=== PATIENT | female | born 1960 | race Caucasian/White ===

== ENCOUNTER 2022-03-03 14:16 | Outpatient (CLI) | payer MEDICARE, MEDICAID, SELFPAY | END 2022-03-03 14:17 | disposition home or self-care (01) | PROVIDERS: PCP Physician Assistant; Visit Provider Physician Assistant | DX: H93.233 Hyperacusis, bilateral (principal) | CPT/HCPCS: 92557; 92567 ==

== ENCOUNTER 2022-04-13 10:02 | Outpatient (RCR) | payer MEDICARE, MEDICAID, SELFPAY | END 2022-07-12 23:59 | disposition home or self-care (01) | LOC: ANHAUDASC 10:02 | PROVIDERS: PCP Physician Assistant; Visit Provider Physician Assistant | DX: Z46.1 Encounter for fitting and adjustment of hearing aid (principal) | CPT/HCPCS: V5264 ==

== ENCOUNTER 2022-10-23 13:00 | Outpatient (RCR) | payer MEDICARE, MEDICAID, SELFPAY | END 2022-12-03 23:59 | disposition home or self-care (01) | LOC: ANHAUDASC 13:00 | PROVIDERS: PCP Physician Assistant; Visit Provider Physician Assistant | DX: Z46.1 Encounter for fitting and adjustment of hearing aid (principal) | CPT/HCPCS: 99199; V5264 ==

== ENCOUNTER 2022-12-26 18:36 | Inpatient (IN) | payer MEDICARE, MEDICAID, SELFPAY ==
[2022-12-26] VITALS (9 sets, daily range): BP systolic 142–151; BP diastolic 71–109; PULSE 97–119; RESP 16–23; TEMP 37.3–37.7; O2SAT 95–99
--- NOTE | ~2022-12-26 | CT_ITS ---
EXAMINATION: CT abdomen pelvis w con INDICATION: Generalized abdominal pain TECHNIQUE: Computed tomographic images of the abdomen and pelvis were obtained after the administrati on of 100 cc of Omnipaque 350 intravenous contrast. The dose-length product (DLP) was 1400.72 mGy-cm. Automated exposure control and iterative reconstruction technique were employed. COMPARISON: None available FINDINGS: Minimal dependent atelectasis is present in the lung bases. The heart size is normal. Punct ate calcifications in an otherwise normal spleen likely represent healed granulomatous disease. The l iver, pancreas, gallbladder, and adrenal glands are normal. There is moderate atrophy of the right ki dney compared to the left. Cysts of the kidneys measure up to 10 mm on the left. There is a 3.7 cm fu siform infrarenal abdominal aortic aneurysm. An IVC filter is noted. No pathologically enlarged abdom inal or pelvic lymph nodes are identified. There is no free intraperitoneal gas. A large volume of co lonic stool is present. There is mild wall thickening of the descending and sigmoid colon with mild a djacent edematous stranding of the pericolic fat. There is mild lumbar spondylosis. IMPRESSION: 1. Mild wall thickening of the descending and sigmoid colon with minimal adjacent fat stranding, sugg estive of colitis. 2. Fusiform infrarenal abdominal aortic aneurysm measuring up to 3.7 cm. Reviewed, dictated and finalized at location F. IMPRESSION: 1. Mild wall thickening of the descending and sigmoid colon with minimal adjace nt fat stranding, suggestive of colitis. 2. Fusiform infrarenal abdominal aortic aneurysm measuring up to 3.7 cm.
--- NOTE | ~2022-12-26 | CT_ITS ---
EXAMINATION: CT abdomen pelvis wo con DATE: 01/01/2023 10:46 INDICATION: Dilated bowel. TECHNIQUE: Computed tomography (CT) of the abdomen and pelvis was performed without intravenous contr ast. Automated exposure control and iterative reconstruction technique were employed. The dose-length product was 1339.19 mGy-cm. COMPARISON: CT abdomen and pelvis 12/26/2022 FINDINGS: The visualized portions of the lung bases demonstrate mild atelectasis. A calcified right l shawn nodule is consistent with old granulomatous disease. No pleural effusion. The heart size is ramila l. There are coronary artery calcifications. There is a small pericardial effusion. There is diffuse hepatic steatosis. Calcifications in the spleen are consistent with old granulomatous disease. The ga llbladder, pancreas, adrenal glands, and left kidney are normal. There is mild atrophy of right kidne y. There is a filter in the inferior vena cava. There is wall thickening of the descending and sigmoi d colon with surrounding fat stranding, consistent with colitis. There is a large volume of stool in the colon. The appendix is normal. There is a 3.6 cm fusiform aneurysm of infrarenal aorta. There is trace ascites. There are no pathologically enlarged lymph nodes. There is no free intraperitoneal flu id. There is mild thoracolumbar spondylosis. Thoracolumbar levoscoliosis is noted. IMPRESSION: 1. Colitis involving the descending and sigmoid colon. 2. Large volume of stool in the colon. 3. 3.6 cm fusiform aneurysm of infrarenal aorta. 4. New small pericardial effusion. Reviewed, dictated and finalized at location A.
--- NOTE | ~2022-12-26 | XR_ITS ---
EXAM: XR abdomen obstructive series DATE: 12/31/2022 15:42 HISTORY: GENERALIZED Abd pain, no BM x 4 days . COMPARISON: CT abdomen and pelvis 12/26/2022. FINDINGS: IVC filter. Clear lung bases. Scattered loops of dilated large bowel, measuring up to 10.6 cm. Large volume of colonic feces. No organomegaly. No abnormal abdominal calcification. Degenerativ e changes in the spine and bilateral hips. IMPRESSION: Multiple loops of mildly dilated large bowel, may reflect, ileus or obstruction. Large vo lume of colonic fecal material. Reviewed, dictated and finalized at location K. IMPRESSION: Multiple loops of mildly dilated large bowel, may reflect, ileus or obstruction. Large volume of colonic fecal material.
[2022-12-26 19:00] LABS: Basophils Absolute Auto 0.1 K/mm3 (0.0-0.1); Basophils Percent Auto 0.3 % (0.2-1.2); Hematocrit 43.5 % (37.0-47.0); Hemoglobin 15.6 g/dL (12.0-15.0); Immature Granulocyte Absolute 0.12 K/mm3 (0.00-0.031); Immature Granulocyte Percent A 0.5 % (0-0.5); Lymphocytes Absolute Auto 1.44 K/mm3 (0.9-3.2); Lymphocytes Percent Auto 6.2 % (18.3-44.2); Mean Corpuscular HGB Conc 35.9 g/dl (32-36); Mean Corpuscular Hemoglobin 28.7 pg (26-34); Mean Corpuscular Volume 80.1 fl (80-100); Mean Platelet Volume 8.6 fl (7.4-10.4); Monocytes Absolute Auto 1.5 K/mm3 (0.1-0.6); Monocytes Percent Auto 6.5 % (2.6-8.5); Neutrophils Absolute Auto 20.1 K/mm3 (1.3-6.7); Neutrophils Percent Auto 86.5 % (45.5-73.1); Platelet Count Result 529 k/mm3 (150-375); Red Blood Count 5.43 M/mm3 (4.2-5.4); Red Cell Distribution Width 13.2 % (11.5-14.5); White Blood Count 23.2 K/mm3 (4.5-10.0)
[2022-12-26 19:29] LABS: Alanine Aminotransferase 24 U/L (6-35); Albumin Level 4.7 g/dL (3.5-5.1); Alkaline Phosphatase 126 U/L (38-126); Anion Gap 14 mmol/L (8-16); Aspartate Amino Transferase 30 U/L (14-36); Blood Urea Nitrogen 30 mg/dL (7-17); Calcium 9.7 mg/dL (8.4-10.2); Carbon Dioxide 27 mmol/L (22-30); Chloride 96 mmol/L (98-107); Estimated CRCL calculation 45 ml/min; Estimated Glomerular Filt Rate 35; Glucose 158 mg/dL (65-110); Lipase 46 U/L (23-300); Potassium 2.7 mmol/L (3.4-5.0); Sodium 137 mmol/L (137-145)
[2022-12-26] MEDS: MORPHINE SULFATE (*CRX) 4 MG/ML INJ IV PUSH (22:21)
[2022-12-26] MEDS: ONDANSETRON INJ 4 MG/2 ML VIAL IV PUSH (22:21)
[2022-12-26] MEDS: KCL 20 MEQ/SW 100 ML 100 ML 50 MEQ IVPB (22:22)
[2022-12-26] MEDS: SODIUM CHLORIDE 0.9% IV 1,000 ML 999 ML IV CONT (22:22)
[2022-12-26 22:33] LABS: Lactic Acid Reflex 1.6 mmol/L (0.7-2.0); Magnesium 3.2 mg/dL (1.6-2.3)
[2022-12-27] VITALS (17 sets, daily range): BP systolic 124–136; BP diastolic 65–80; PULSE 78–102; RESP 15–25; TEMP 36.5–37.5; O2SAT 94–99; BMI 31.1
--- NOTE | 2022-12-27 00:10 | ED.GENADULT ---
HPI - General Adult General Chief complaint: Abdominal Pain Stated complaint: abd pain, vomiting Time Seen by Provider: 12/26/22 21:36 History of Present Illness HPI narrative: Patient 62-year-old female who presents emergency department with chief complaint of abdominal pain. The patient reports started having pain in the left lower quadrant reports that nausea vomiting reports that she has not had a bowel movement in the last 24 hours. Patient denies fever reports no prior history of bowel perforation denies history of appendectomy or cholecystectomy. Related Data Allergies Allergy/AdvReac Type Severity Reaction Status Date / Time sumatriptan Allergy Anaphylaxis Verified 12/26/22 21:45 ergotamine AdvReac Agitated Verified 12/26/22 21:45 NSAIDS (Non-Steroidal AdvReac Abdominal Verified 12/26/22 21:45 Anti-Inflamma Pain prednisone AdvReac Agitated Verified 12/26/22 21:45 rosuvastatin [From Crestor] AdvReac Diarrhea Verified 12/26/22 21:45 [id number]-[id number] Reductase AdvReac Diarrhea Verified 12/26/22 21:45 Inhibitor tree nut AdvReac Headache Verified 12/26/22 21:45 Review of Systems Review of Systems: A 10 system review of systems was completed on the patient and is negative except for what is stated in the HPI. Nursing and ancillary documentation was reviewed. Exam Narrative: GENERAL: Well-appearing, well-nourished, and in no acute distress. HEAD: Normocephalic, atraumatic. EYES: PERRLA and EOMI. ENT: Nares clear, no rhinorrhea or epistaxis. Mucous membranes moist. NECK: Supple. CHEST: Clear to auscultation. No respiratory distress. HEART: Regular rate and rhythm. No murmur heard. Normal peripheral pulses. ABDOMEN: Soft, tenderness to palpation in the left lower quadrant, nondistended, normal active bowel sounds. EXTREMITIES: Normal range of motion. No edema. SKIN: Warm, dry, no rash. NEURO: No focal deficits. Alert and oriented x3. PSYCH: Normal mood and affect. Course Vital Signs Vital signs: Vital Signs Temperature 37.3 C 12/26/22 18:42 Pulse Rate 119 H 12/26/22 18:42 Respiratory Rate 18 12/26/22 18:42 Blood Pressure 149/97 H 12/26/22 18:42 Pulse Oximetry 99 12/26/22 18:42 Oxygen Delivery Room Air 12/26/22 18:42 Temperature 37.7 C H 12/26/22 23:02 Pulse Rate 101 H 12/26/22 23:02 Respiratory Rate 18 12/26/22 23:02 Blood Pressure 151/109 H 12/26/22 21:36 Pulse Oximetry 95 12/26/22 23:15 Oxygen Delivery Room Air 12/26/22 18:42 Medical Decision Making MDM Narrative Medical decision making narrative: Differential diagnosis includes bowel perforation, bowel obstruction, diverticulitis colitis, intra-abdominal infection, appendicitis, cholecystitis Laboratory studies were obtained show white count of 23,000 labs also show that the patient's potassium was low at 2.7. Patient's magnesium was 3.2 Patient received 20 mill equivalents of potassium IV in the emergency department also received IV fluids and received Zosyn in the ER blood cultures were obtained. CT scan showed evidence of acute colitis Patient was discussed with the hospitalist patient admitted to hospital service Vital Signs Vital Signs: Vital Signs Temperature 37.3 C 12/26/22 18:42 Pulse Rate 119 H 12/26/22 18:42 Respiratory Rate 18 12/26/22 18:42 Blood Pressure 149/97 H 12/26/22 18:42 Pulse Oximetry 99 12/26/22 18:42 Oxygen Delivery Room Air 12/26/22 18:42 Temperature 37.7 C H 12/26/22 23:02 Pulse Rate 101 H 12/26/22 23:02 Respiratory Rate 18 12/26/22 23:02 Blood Pressure 151/109 H 12/26/22 21:36 Pulse Oximetry 95 12/26/22 23:15 Oxygen Delivery Room Air 12/26/22 18:42 Lab Data 12/26/22 18:51 12/26/22 18:51 Labs: Lab Results 12/26/22 12/26/22 12/26/22 Range/Units 18:51 18:51 22:01 WBC 23.2 H (4.5-10.0) K/mm3 RBC 5.43 H (4.2-5.4) M/mm3 Hgb 15.6 H (12.0-15.0) g/dL Hct 43.5 (37.0-47.0)
[2022-12-27 00:36] LABS: Appearance Urine Cloudy (Clear); Bacteria Urine 4+ /hpf; Bilirubin Urine Negative (Negative); Blood Urine Negative (Negative); Color Urine Yellow (Yellow); Glucose Urine UA Negative (Negative); Ketones Urine Negative (Negative); Leukocyte Esterase Ur Trace LEU/UL (Negative); Nitrate Urine Positive (Negative); Protein Urine Trace mg/dL (Negative); RBC Urine 0-2 /hpf (0-2); Specific Grav Ur 1.033 (1.001-1.035); Squamous Epithelial Cell Urine Many /hpf (Few); Urobilinogen Urine 0.2 mg/dL (<2.0)
[2022-12-27 00:49] LABS: Add Urine Microscopic? YES
[2022-12-27] MEDS: POTASSIUM CHLORIDE INJ 40 MEQ in SODIUM CHLORIDE 0.9% IV 500 ML 130 MEQ IVPB ×2 (01:24→10:00)
[2022-12-27] MEDS: PIPERACILLN/TAZ 3.375GM/NS50ML 3.375 GM/50 ML BAG IVPB ×4 (01:25→17:22)
[2022-12-27] MEDS: ONDANSETRON INJ 4 MG/2 ML VIAL IV PUSH (03:20)
[2022-12-27] MEDS: MORPHINE SULFATE (*CRX) 4 MG/ML INJ IV PUSH ×5 (03:20→23:59)
--- NOTE | 2022-12-27 04:31 | ADMGEN ---
This patient, Davin Cho, was admitted to Medical Room 248-01. Patient/family oriented to hospital policies and general routines including ID bracelet, bed and alarms, visiting hours, pain management, procedures, bathroom and other care routines, personal items, smoking policy, room service/diet, and visiting hours. Information on how to activate the Rapid Response Team has been discussed. Patient/Family are encouraged to report perceived risks to care and to ask questions if they do not understand what they are told or what they should do.
[2022-12-27] MEDS: SODIUM CHLORIDE 0.9% IV 1,000 ML 125 ML IV CONT ×2 (06:05→17:23)
--- NOTE | 2022-12-27 06:14 | PM.IMHP ---
H&P: HPI History of Present Illness Date/Time: 12/27/22 06:14 Chief Complaint: abdominal pain and vomiting Narrative: Patient is a 62 female with pmhx of htn, cva with left sided residual, hypelripidemia, dvt s/p ivc filter placement, depression and fibromyalgia, chronic fatigue syndrome coming in for abdominal pain and vomiting for 4 days. patient is usually bed bound but is able to ambulate by holding on the hand or a walker. she has home health which comes to her house and helps with her food, dressing and bathing. she said that since 4 days ago she has had problems with eating, with feeling full early. her abdomen started to hurt with crampy colicky pain. pain worsened yesterday with patient being unable to have any bowel movement. she [facility] home health nurse and she was given dulcolax suppositories which only made her vomit a lot of foul smelling material. patient denies any abdominal surgeries int he past. 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 she has had 2 cva's with left sided residual as well as some vision problems. she denies any suicidla or homicidal ideation. she used to go to the pain clinic for back injections but she says those have not helped much. Review of Systems Review of Systems: no fever or weight loss no vision changes, no eye discharge no throat pain, no hoarseness, no lymphadenopathy no chest pain, no palpitations no coughing, no wheezing positive abdominal pain, nausea, and vomiting no bowel movement for over 1 day no dysuria, no vaginal discharge no leg swelling, no edema no suicidal or homicidal ideation [facility] Social History Social History Smoking packs per day: 0.5 Smoking cigarettes per day: 10.0 Smoking status: Current every day smoker Tobacco type: cigarettes Alcohol intake: never Substance use: current Substance use type: marijuana Last use: 12/20/2022 Lack of Transportation: No Lack of Food: Never True Current Housing: I Have Housing Concerned About Future Housing: No Difficulty Paying Gas/Electric Bills: YES Difficulty Paying for Meds: No Currently Unemployed: No Education: High School Diploma/GED Difficulty w/ Childcare or Family Care: No Spiritual care concerns: No Meds Home Medications and Allergies Home Medications Medication Instructions Recorded Confirmed Type alprazolam 2 mg tablet 2 mg PO TID 12/27/22 12/27/22 History amlodipine 10 mg tablet 10 mg PO DAILY 12/27/22 12/27/22 History biotin 10,000 mcg chewable tablet 10,000 mcg PO DAILY 12/27/22 12/27/22 History (Hair, Skin and Nails (biotin)) cyclobenzaprine 10 mg tablet 10 mg PO TID 12/27/22 12/27/22 History folic acid 1 mg tablet 1 mg PO DAILY 12/27/22 12/27/22 History guanfacine 1 mg tablet 1 mg PO HS 12/27/22 12/27/22 History hydrochlorothiazide 25 mg tablet 25 mg PO DAILY 12/27/22 12/27/22 History levothyroxine 100 mcg tablet 100 mcg PO DAILY 12/27/22 12/27/22 History losartan 50 mg tablet 50 mg PO DAILY 12/27/22 12/27/22 History ondansetron 4 mg disintegrating 4 mg PO BID PRN Nausea 12/27/22 12/27/22 History tablet prochlorperazine maleate 10 mg 10 mg PO TID 12/27/22 12/27/22 History tablet zolpidem 5 mg tablet 5 mg PO HS 12/27/22 12/27/22 History Allergies Allergy/AdvReac Type Severity Reaction Status Date / Time sumatriptan Allergy Anaphylaxis Verified 12/26/22 21:45 ergotamine AdvReac Agitated Verified 12/26/22 21:45 NSAIDS (Non-Steroidal AdvReac Abdominal Verified 12/26/22 21:45 Anti-Inflamma Pain prednisone AdvReac Agitated Verified 12/26/22 21:45 rosuvastatin [From Crestor] AdvReac Diarrhea Verified 12/26/22 21:45 Nuamjai-UBO-BgR Reductase AdvReac Diarrhea Verified 12/26/22 21:45 Inhibitor tree nut AdvReac Headache Verified 12/26/22 21:45 Vital Signs Vital Signs - 24 hr 12/26/22 18:42 12/26/22 21:17 12/26/22 21:36 Temperature 99.2 F Pulse Rat
[2022-12-27 08:17] LABS: Basophils Absolute Auto 0.1 K/mm3 (0.0-0.1); Basophils Percent Auto 0.5 % (0.2-1.2); Eosinophils Percent Auto 0.1 % (0-4.4); Hematocrit 42.1 % (37.0-47.0); Hemoglobin 14.4 g/dL (12.0-15.0); Immature Granulocyte Absolute 0.08 K/mm3 (0.00-0.031); Immature Granulocyte Percent A 0.4 % (0-0.5); Lymphocytes Absolute Auto 2.76 K/mm3 (0.9-3.2); Lymphocytes Percent Auto 12.4 % (18.3-44.2); Mean Corpuscular HGB Conc 34.2 g/dl (32-36); Mean Corpuscular Hemoglobin 28.9 pg (26-34); Mean Corpuscular Volume 84.5 fl (80-100); Mean Platelet Volume 8.8 fl (7.4-10.4); Monocytes Absolute Auto 1.5 K/mm3 (0.1-0.6); Monocytes Percent Auto 6.8 % (2.6-8.5); Neutrophils Absolute Auto 17.8 K/mm3 (1.3-6.7); Neutrophils Percent Auto 79.8 % (45.5-73.1); Platelet Count Result 449 k/mm3 (150-375); Red Blood Count 4.98 M/mm3 (4.2-5.4); Red Cell Distribution Width 13.6 % (11.5-14.5); White Blood Count 22.3 K/mm3 (4.5-10.0)
[2022-12-27 08:28] LABS: Anion Gap 14 mmol/L (8-16); Blood Urea Nitrogen 27 mg/dL (7-17); Calcium 8.3 mg/dL (8.4-10.2); Carbon Dioxide 25 mmol/L (22-30); Chloride 99 mmol/L (98-107); Estimated CRCL calculation 53 ml/min; Estimated Glomerular Filt Rate 42; Glucose 125 mg/dL (65-110); Potassium 2.8 mmol/L (3.4-5.0); Sodium 138 mmol/L (137-145)
[2022-12-27] MEDS: ENOXAPARIN 40 MG/0.4 ML SYRINGE SUB-Q (08:43)
--- NOTE | 2022-12-27 16:23 | PCCCNOTE ---
On 12/27/22, the student, [Kathy Wilkins ], provided care and completed [facility] on [facility]. I have reviewed the student's documentation and agree with the findings.
--- NOTE | 2022-12-27 16:50 | PM.IMPN ---
Progress Note: A&P Assessment and Plan (1) Acute colitis: Code(s): K52.9 - Noninfective gastroenteritis and colitis, unspecified Status: Acute Assessment and Plan: Patient with abdominal pain, nausea and vomiting CT showed colitis but no evidence of perforation. Continue supportive care with iv fluids. Advance to clear liquids Continue levaquin and flagyl Supportive care to include antiemetics and analgesics Obtain stool cultures (2) Sepsis: Code(s): A41.9 - Sepsis, unspecified organism Status: Acute Assessment and Plan: Leukocytosis, tachycardia, source of infection colitis as above Continue IV abx and IV fluids Trend WBC Blood cultures pending Afebrile (3) Acute hypokalemia: Code(s): E87.6 - Hypokalemia Status: Acute Assessment and Plan: Likely due to vomiting and decreased PO intake Potassium 2.9 today Supplement and monitor (4) KALIE (acute kidney injury): Code(s): N17.9 - Acute kidney failure, unspecified Status: Acute Assessment and Plan: Improving. Cr elevated to 1.5 on admission, likely prerenal azotemia Continue with IV fluids Monitor BMP (5) Hypertension: Code(s): I10 - Essential (primary) hypertension Status: Acute Assessment and Plan: BP remaining stable Resume antihypertensives when tolerating PO intake Subjective Date/time seen: 12/27/22 16:50 Interval history: Date of service: 12/27/2022 Davin Cho is a 62-year-old female with history of hypertension, CVA with residual left sided weakness, hyperlipidemia, DVT s/p IVC filter, depression, fibromyalgia, and chronic fatigue syndrome who is seen in follow up for acute colitis. She endorses abdominal discomfort. Complains of feeling thirsty. Would like to start clear liquids. Denies nausea or vomiting. She feels weak. Review of Systems Review of Systems: All systems reviewed & are unremarkable except as noted in HPI and below Exam Narrative: General: well-nourished, well-appearing 62-year-old male, sitting up in bed, comfortable Neuro: awake, alert and oriented x4, speech clear, no focal neuro deficits noted HEENMT:normocephalic, atraumatic, EOMI, sclerae anicteric Respiratory:clear to auscultation bilaterally, nonlabored breathing Cardio: regular rate, regular rhythm with S1-S2 Abdomen: nondistended, normoactive bowel sounds, soft, nontender to palpation Extremities: no edema, erythema, or tenderness to palpation, DP pulses 2+ bilaterally Skin: no rashes or lesions, warm and dry Psych: appropriate mood and affect, judgment and insight intact Objective Data Vital Signs Vital Signs: Vital Signs - 24 hr 12/26/22 18:42 12/26/22 21:17 12/26/22 21:36 Temperature 99.2 F Pulse Rate 119 H 97 100 Respiratory Rate 18 16 16 Blood Pressure 149/97 H 144/79 H 151/109 H Pulse Oximetry 99 98 95 Oxygen Delivery Room Air 12/26/22 22:16 12/26/22 22:48 12/26/22 23:02 Temperature 99.9 F H Pulse Rate 100 101 H Respiratory Rate 23 H 18 Blood Pressure Pulse Oximetry 98 96 Oxygen Delivery 12/26/22 23:15 12/26/22 23:30 12/26/22 23:31 Temperature Pulse Rate 99 Respiratory Rate 20 Blood Pressure 142/71 H Pulse Oximetry 95 95 95 Oxygen Delivery 12/27/22 00:23 12/27/22 00:30 12/27/22 00:45 Temperature Pulse Rate 97 92 86 Respiratory Rate 23 H Blood Pressure Pulse Oximetry 94 95 95 Oxygen Delivery 12/27/22 01:00 12/27/22 01:38 12/27/22 02:01 Temperature 98 F Pulse Rate 78 99 93 Respiratory Rate 25 H 18 20 Blood Pressure 130/80 136/67 Pulse Oximetry 96 99 96 Oxygen Delivery 12/27/22 02:18 12/27/22 02:30 12/27/22 02:55 Temperature Pulse Rate 88 87 93 Respiratory Rate 20 20 15 Blood Pressure Pulse Oximetry 96 97 97 Oxygen Delivery 12/27/22 03:07 12/27/22 04:27 12/27/22 08:00 Temperature 99.5 F 97.7 F Pulse Rate 99 87 102
[2022-12-27] MEDS: POTASSIUM CHLORIDE 20 MEQ TABLET PO (17:22)
[2022-12-27] MEDS: CYCLOBENZAPRINE HCL 10 MG TABLET PO (17:22)
[2022-12-27] MEDS: ZOLPIDEM TARTRATE (*CRX) 5 MG TABLET PO (21:28)
[2022-12-27] MEDS: guanFACINE HCL 1 MG TABLET PO (21:28)
[2022-12-28] VITALS (10 sets, daily range): BP systolic 128–136; BP diastolic 66–67; PULSE 81–99; RESP 16–18; TEMP 36.7–36.9; O2SAT 93–97
[2022-12-28] MEDS: PIPERACILLN/TAZ 3.375GM/NS50ML 3.375 GM/50 ML BAG IVPB ×5 (00:06→23:56)
[2022-12-28] MEDS: MORPHINE SULFATE (*CRX) 4 MG/ML INJ IV PUSH ×3 (03:40→11:49)
[2022-12-28] MEDS: SODIUM CHLORIDE 0.9% IV 1,000 ML 125 ML IV CONT (03:45)
[2022-12-28 05:09] LABS: Basophils Absolute Auto 0.1 K/mm3 (0.0-0.1); Basophils Percent Auto 0.6 % (0.2-1.2); Eosinophils Absolute Auto 0.2 K/mm3 (0-0.3); Eosinophils Percent Auto 1.1 % (0-4.4); Hematocrit 34.5 % (37.0-47.0); Hemoglobin 11.7 g/dL (12.0-15.0); Immature Granulocyte Percent A 0.6 % (0-0.5); Lymphocytes Absolute Auto 2.34 K/mm3 (0.9-3.2); Lymphocytes Percent Auto 13.9 % (18.3-44.2); Mean Corpuscular HGB Conc 33.9 g/dl (32-36); Mean Corpuscular Hemoglobin 29.1 pg (26-34); Mean Corpuscular Volume 85.8 fl (80-100); Mean Platelet Volume 8.8 fl (7.4-10.4); Monocytes Absolute Auto 1.2 K/mm3 (0.1-0.6); Monocytes Percent Auto 6.9 % (2.6-8.5); Neutrophils Absolute Auto 12.9 K/mm3 (1.3-6.7); Neutrophils Percent Auto 76.9 % (45.5-73.1); Platelet Count Result 309 k/mm3 (150-375); Red Blood Count 4.02 M/mm3 (4.2-5.4); Red Cell Distribution Width 13.5 % (11.5-14.5); White Blood Count 16.8 K/mm3 (4.5-10.0)
[2022-12-28 05:31] LABS: Anion Gap 5 mmol/L (8-16); Blood Urea Nitrogen 21 mg/dL (7-17); Calcium 7.5 mg/dL (8.4-10.2); Carbon Dioxide 27 mmol/L (22-30); Chloride 103 mmol/L (98-107); Estimated CRCL calculation 62 ml/min; Estimated Glomerular Filt Rate 50; Glucose 133 mg/dL (65-110); Potassium 2.8 mmol/L (3.4-5.0); Sodium 135 mmol/L (137-145)
[2022-12-28] MEDS: LEVOTHYROXINE SODIUM 100 MCG TABLET PO (06:37)
[2022-12-28 08:27] LABS: Magnesium 2.6 mg/dL (1.6-2.3)
[2022-12-28] MEDS: LOSARTAN POTASSIUM 50 MG TABLET PO (08:46)
[2022-12-28] MEDS: ENOXAPARIN 40 MG/0.4 ML SYRINGE SUB-Q (08:46)
[2022-12-28] MEDS: FOLIC ACID 1 MG TABLET PO (08:47)
[2022-12-28] MEDS: CYCLOBENZAPRINE HCL 10 MG TABLET PO ×3 (08:47→16:54)
[2022-12-28] MEDS: POTASSIUM CHLORIDE 20 MEQ TABLET 40 MEQ PO ×2 (08:47→16:54)
[2022-12-28] MEDS: amLODIPine BESYLATE 5 MG TABLET 10 MG PO (08:47)
[2022-12-28] MEDS: POTASSIUM CHLORIDE 20 MEQ PACKET (FOR LIQUID) 40 MEQ PO ×2 (08:48→16:55)
--- NOTE | 2022-12-28 11:07 | PC.NURSE ---
On 12/28/22, the student, [Chiqui Laboy], provided care and completed [facility] documentation on this patient. I have reviewed the student's documentation and agree with the findings.
--- NOTE | 2022-12-28 15:01 | PC.NURSE ---
On 12/28/22, the student, [Margi Beard], provided care and completed [facility] on this patient. I have reviewed the student's documentation and agree with the findings.
--- NOTE | 2022-12-28 16:26 | PM.IMPN ---
Progress Note: A&P Assessment and Plan (1) Acute colitis: Code(s): K52.9 - Noninfective gastroenteritis and colitis, unspecified Status: Acute Assessment and Plan: Patient with abdominal pain, nausea and vomiting CT showed colitis but no evidence of perforation. Continue supportive care with iv fluids. Tolerating full liquids. Advance to low-fiber /bland diet as tolerated Supportive care to include antiemetics and analgesics stool cultures ordered, awaiting collection (2) Sepsis: Code(s): A41.9 - Sepsis, unspecified organism Status: Acute Assessment and Plan: patient met criteria for sepsis with leukocytosis and tachycardia. Source of infection colitis as above Continue IV abx and IV fluids Trend WBC, improving today Afebrile (3) Positive blood culture: Code(s): R78.81 - Bacteremia Status: Acute Assessment and Plan: blood cultures with growth of Gram-positive cocci in 1/2 bottles. Etiology for infection not entirely clear, possibly GI source versus urinary will await further identification continue vancomycin and Zosyn while awaiting results (4) Abnormal urinalysis: Code(s): R82.90 - Unspecified abnormal findings in urine Status: Acute Assessment and Plan: patient complains of dysuria and UA is slightly abnormal urine cultures pending patient is maintained on broad-spectrum vancomycin and Zosyn while awaiting blood culture results, continue and tailor appropriately based on culture results (5) Acute hypokalemia: Code(s): E87.6 - Hypokalemia Status: Acute Assessment and Plan: Likely due to vomiting and decreased PO intake Potassium 2.9 today Supplement and monitor begin scheduled potassium supplementation (6) KALIE (acute kidney injury): Code(s): N17.9 - Acute kidney failure, unspecified Status: Acute Assessment and Plan: Improving. Cr elevated to 1.5 on admission, likely prerenal azotemia Continue with gentle IV fluids Monitor BMP (7) Hypertension: Code(s): I10 - Essential (primary) hypertension Status: Acute Assessment and Plan: BP remaining stable continue amlodipine and losartan Subjective Date/time seen: 12/28/22 16:26 Interval history: Date of service: 12/28/2022 Davin Cho is a 62-year-old female with history of hypertension, CVA with residual left sided weakness, hyperlipidemia, DVT s/p IVC filter, depression, fibromyalgia, and chronic fatigue syndrome who is seen in follow up for acute colitis. Starting to feel somewhat improved. She is tolerating liquids. She does endorse 5/10 abdominal discomfort, states it is worse with activity. She has some mild abdominal cramping. States she has not had any bowel movements and is not passing flatus today. She also complains of some mild dysuria. Denies hematuria. Review of Systems Review of Systems: All systems reviewed & are unremarkable except as noted in HPI and below Exam Narrative: General: well-nourished, well-appearing 62-year-old female, sitting up in bed, comfortable Neuro: awake, alert and oriented x4, speech clear, no focal neuro deficits noted HEENMT:normocephalic, atraumatic, EOMI, sclerae anicteric Respiratory:clear to auscultation bilaterally, nonlabored breathing Cardio: regular rate, regular rhythm with S1-S2 Abdomen: nondistended, normoactive bowel sounds, soft, nontender to palpation Extremities: no edema, erythema, or tenderness to palpation, DP pulses 2+ bilaterally Skin: no rashes or lesions, warm and dry Psych: appropriate mood and affect, judgment and insight fair Objective Data Vital Signs Vital Signs: Vital Signs - 24 hr 12/27/22 21:37 12/27/22 21:10 12/27/22 20:00 Temperature 98.1 F Pulse Rate 92 98 Respiratory Rate 18 Blood Pressure 134/69 Pulse Oximetry 99 Oxygen Delivery Room Air 12/28/22 00
[2022-12-28] MEDS: HYDROcodone/acetaminophen (*CRX) 5-325 MG TABLET 1 TAB PO (16:54)
[2022-12-28] MEDS: MORPHINE SULFATE (*CRX) 4 MG/ML INJ 2 MG IV PUSH (20:41)
[2022-12-28] MEDS: SODIUM CHLORIDE 0.9% IV 1,000 ML 75 ML IV CONT (20:42)
[2022-12-28] MEDS: ZOLPIDEM TARTRATE (*CRX) 5 MG TABLET PO (20:43)
[2022-12-28] MEDS: guanFACINE HCL 1 MG TABLET PO (20:43)
[2022-12-29] VITALS (10 sets, daily range): BP systolic 116–156; BP diastolic 51–92; PULSE 67–118; RESP 14–20; TEMP 36.9–37.6; O2SAT 97–99
[2022-12-29] MEDS: HYDROcodone/acetaminophen (*CRX) 5-325 MG TABLET 1 TAB PO ×2 (01:51→17:43)
[2022-12-29 05:38] LABS: Hematocrit 32.7 % (37.0-47.0); Hemoglobin 11.2 g/dL (12.0-15.0); Mean Corpuscular HGB Conc 34.3 g/dl (32-36); Mean Corpuscular Hemoglobin 28.4 pg (26-34); Mean Corpuscular Volume 82.8 fl (80-100); Mean Platelet Volume 8.9 fl (7.4-10.4); Platelet Count Result 351 k/mm3 (150-375); Red Blood Count 3.95 M/mm3 (4.2-5.4); White Blood Count 15.5 K/mm3 (4.5-10.0)
[2022-12-29] MEDS: PIPERACILLN/TAZ 3.375GM/NS50ML 3.375 GM/50 ML BAG IVPB (05:40)
[2022-12-29] MEDS: MORPHINE SULFATE (*CRX) 4 MG/ML INJ 2 MG IV PUSH ×3 (05:41→20:25)
[2022-12-29] MEDS: LEVOTHYROXINE SODIUM 100 MCG TABLET PO (05:43)
[2022-12-29 06:04] LABS: Anion Gap 9 mmol/L (8-16); Blood Urea Nitrogen 12 mg/dL (7-17); Calcium 7.7 mg/dL (8.4-10.2); Carbon Dioxide 22 mmol/L (22-30); Chloride 102 mmol/L (98-107); Estimated CRCL calculation 67 ml/min; Estimated Glomerular Filt Rate 56; Glucose 99 mg/dL (65-110); Potassium 3.3 mmol/L (3.4-5.0); Sodium 133 mmol/L (137-145)
[2022-12-29] MEDS: POTASSIUM CHLORIDE 20 MEQ TABLET.ER PO ×2 (09:17→17:40)
[2022-12-29] MEDS: LOSARTAN POTASSIUM 50 MG TABLET PO (09:17)
[2022-12-29] MEDS: FOLIC ACID 1 MG TABLET PO (09:17)
[2022-12-29] MEDS: CYCLOBENZAPRINE HCL 10 MG TABLET PO ×3 (09:18→17:40)
[2022-12-29] MEDS: ENOXAPARIN 40 MG/0.4 ML SYRINGE SUB-Q (09:18)
[2022-12-29] MEDS: amLODIPine BESYLATE 5 MG TABLET 10 MG PO (09:18)
--- NOTE | 2022-12-29 11:04 | PC.NURSE ---
On 12/29/22, the student, [Margi Beard], provided care and completed [facility] documentation on this patient. I have reviewed the student's documentation and agree with the findings.
[2022-12-29] MEDS: SODIUM CHLORIDE 0.9% IV 1,000 ML 75 ML IV CONT (12:14)
[2022-12-29] MEDS: AMOXICILLIN/CLAVULANATE K 875-125 MG TAB 1 TABLET PO ×2 (13:21→20:23)
--- NOTE | 2022-12-29 13:27 | PCPTNOTE ---
Attempted PT evaluation. Pt stated I can't. I have to lay down for a few minutes. Pt reports having a panic attack. RN aware.
--- NOTE | 2022-12-29 13:43 | PC.NURSE ---
On 12/29/22, the student, [Anand Valdez], provided care and completed [facility] documentation on this patient. I have reviewed the student's documentation and agree with the findings.
[2022-12-29] MEDS: ALPRAZolam (*CRX) 0.5 MG TABLET 2 MG PO ×2 (14:20→21:41)
--- NOTE | 2022-12-29 14:48 | P.PNIM_ITS ---
Progress Note: A&P Assessment and Plan (1) Acute colitis: Code(s): K52.9 - Noninfective gastroenteritis and colitis, unspecified Status: Acute Assessment and Plan: Patient with abdominal pain, nausea and vomiting * CT showed colitis but no evidence of perforation. * Continue supportive care with iv fluids. * trouble tolerating low-fiber diet today. Continue full liquids and advance again to low-fiber as tolerated * Supportive care to include antiemetics and analgesics * stool cultures ordered, awaiting collection * transition to p.o. Augmentin (2) Sepsis: Code(s): A41.9 - Sepsis, unspecified organism Status: Acute Assessment and Plan: patient met criteria for sepsis with leukocytosis and tachycardia. Source of infection colitis as above * Continue antibiotics * will discontinue IV fluids as patient is tolerating oral intake * Trend WBC, improving today * Afebrile (3) Positive blood culture: Code(s): R78.81 - Bacteremia Status: Acute Assessment and Plan: blood cultures with growth of staphylococcus epidermidis in 1 of 2 bottles * felt to be skin contaminant, not felt to be consistent with true infection * no need for further treatment at this time * vancomycin and Zosyn discontinued (4) UTI (urinary tract infection): Code(s): N39.0 - Urinary tract infection, site not specified Status: Acute Assessment and Plan: patient complained of dysuria, UA abnormal * urine culture with growth of Klebsiella pneumoniae * continue p.o. Augmentin based on susceptibility reports (5) Acute hypokalemia: Code(s): E87.6 - Hypokalemia Status: Acute Assessment and Plan: Likely due to vomiting and decreased PO intake * Potassium improved to 3.3 today * continue scheduled potassium supplementation and monitor BMP (6) KALIE (acute kidney injury): Code(s): N17.9 - Acute kidney failure, unspecified Status: Acute Assessment and Plan: resolved. Cr elevated to 1.5 on admission, likely prerenal azotemia * creatinine has normalized fluid rehydration * Monitor BMP (7) Hypertension: Code(s): I10 - Essential (primary) hypertension Status: Acute Assessment and Plan: BP remaining stable * continue amlodipine and losartan Subjective Date/time seen: 12/29/22 14:48 Interval history: Date of service: 12/29/2022 Davin Cho is a 62-year-old female with history of hypertension, CVA with residual left sided weakness, hyperlipidemia, DVT s/p IVC filter, depression, fibromyalgia, and chronic fatigue syndrome who is seen in follow up for acute colitis. patient states that she is feeling rough today. She tried to have solids for breakfast and had difficulty keeping this down. She endorsed episode of emesis and has had nausea since. She complains of pain across her lower abdomen. She also endorses dysuria. She denies shortness of breath or congestion but does complain of allergies. Denies cough. She does feel a bit weak, dizzy, and unsteady. Review of Systems Review of Systems: All systems reviewed & are unremarkable except as noted in HPI and below Exam Narrative: General: well-nourished, well-appearing 62-year-old female, sitting up in bed, comfortable Neuro: awake, alert and oriented x4, speech clear, no focal neuro deficits noted HEENMT:normocephalic, atraumatic, EOMI, sclerae anicteric Respiratory:clear to a
--- NOTE | 2022-12-29 14:48 | PM.IMPN ---
Progress Note: A&P Assessment and Plan (1) Acute colitis: Code(s): K52.9 - Noninfective gastroenteritis and colitis, unspecified Status: Acute Assessment and Plan: Patient with abdominal pain, nausea and vomiting CT showed colitis but no evidence of perforation. Continue supportive care with iv fluids. trouble tolerating low-fiber diet today. Continue full liquids and advance again to low-fiber as tolerated Supportive care to include antiemetics and analgesics stool cultures ordered, awaiting collection transition to p.o. Augmentin (2) Sepsis: Code(s): A41.9 - Sepsis, unspecified organism Status: Acute Assessment and Plan: patient met criteria for sepsis with leukocytosis and tachycardia. Source of infection colitis as above Continue antibiotics will discontinue IV fluids as patient is tolerating oral intake Trend WBC, improving today Afebrile (3) Positive blood culture: Code(s): R78.81 - Bacteremia Status: Acute Assessment and Plan: blood cultures with growth of staphylococcus epidermidis in 1 of 2 bottles felt to be skin contaminant, not felt to be consistent with true infection no need for further treatment at this time vancomycin and Zosyn discontinued (4) UTI (urinary tract infection): Code(s): N39.0 - Urinary tract infection, site not specified Status: Acute Assessment and Plan: patient complained of dysuria, UA abnormal urine culture with growth of Klebsiella pneumoniae continue p.o. Augmentin based on susceptibility reports (5) Acute hypokalemia: Code(s): E87.6 - Hypokalemia Status: Acute Assessment and Plan: Likely due to vomiting and decreased PO intake Potassium improved to 3.3 today continue scheduled potassium supplementation and monitor BMP (6) KALIE (acute kidney injury): Code(s): N17.9 - Acute kidney failure, unspecified Status: Acute Assessment and Plan: resolved. Cr elevated to 1.5 on admission, likely prerenal azotemia creatinine has normalized fluid rehydration Monitor BMP (7) Hypertension: Code(s): I10 - Essential (primary) hypertension Status: Acute Assessment and Plan: BP remaining stable continue amlodipine and losartan Subjective Date/time seen: 12/29/22 14:48 Interval history: Date of service: 12/29/2022 Davin Cho is a 62-year-old female with history of hypertension, CVA with residual left sided weakness, hyperlipidemia, DVT s/p IVC filter, depression, fibromyalgia, and chronic fatigue syndrome who is seen in follow up for acute colitis. patient states that she is feeling rough today. She tried to have solids for breakfast and had difficulty keeping this down. She endorsed episode of emesis and has had nausea since. She complains of pain across her lower abdomen. She also endorses dysuria. She denies shortness of breath or congestion but does complain of allergies. Denies cough. She does feel a bit weak, dizzy, and unsteady. Review of Systems Review of Systems: All systems reviewed & are unremarkable except as noted in HPI and below Exam Narrative: General: well-nourished, well-appearing 62-year-old female, sitting up in bed, comfortable Neuro: awake, alert and oriented x4, speech clear, no focal neuro deficits noted HEENMT:normocephalic, atraumatic, EOMI, sclerae anicteric Respiratory:clear to auscultation bilaterally, nonlabored breathing Cardio: regular rate, regular rhythm with S1-S2 Abdomen: nondistended, normoactive bowel sounds, soft, slightly tender to palpation Extremities: no edema, erythema, or tenderness to palpation, DP pulses 2+ bilaterally Skin: no rashes or lesions, warm and dry Psych: appropriate mood and affect, judgment and insight fair Objective Data Vital Signs Vital Signs: Vital Signs - 24 hr 12/28/22 16:00 12/28/22 19:38 12/28/22 2
[2022-12-29] MEDS: ONDANSETRON INJ 4 MG/2 ML VIAL IV PUSH (17:43)
[2022-12-29] MEDS: guanFACINE HCL 1 MG TABLET PO (20:23)
[2022-12-29] MEDS: ZOLPIDEM TARTRATE (*CRX) 5 MG TABLET PO (20:23)
[2022-12-30] VITALS (12 sets, daily range): BP systolic 116–148; BP diastolic 52–78; PULSE 87–113; RESP 16–20; TEMP 36.4–37.1; O2SAT 96–97
[2022-12-30] MEDS: HYDROcodone/acetaminophen (*CRX) 5-325 MG TABLET 1 TAB PO ×3 (01:09→16:09)
[2022-12-30] MEDS: LEVOTHYROXINE SODIUM 100 MCG TABLET PO (05:30)
[2022-12-30] MEDS: ONDANSETRON INJ 4 MG/2 ML VIAL IV PUSH ×2 (05:45→09:20)
[2022-12-30] MEDS: MORPHINE SULFATE (*CRX) 4 MG/ML INJ 2 MG IV PUSH ×2 (05:45→20:26)
[2022-12-30 06:14] LABS: Hematocrit 37.3 % (37.0-47.0); Hemoglobin 12.5 g/dL (12.0-15.0); Mean Corpuscular HGB Conc 33.5 g/dl (32-36); Mean Corpuscular Hemoglobin 27.6 pg (26-34); Mean Corpuscular Volume 82.3 fl (80-100); Mean Platelet Volume 8.7 fl (7.4-10.4); Platelet Count Result 501 k/mm3 (150-375); Red Blood Count 4.53 M/mm3 (4.2-5.4); Red Cell Distribution Width 13.2 % (11.5-14.5); White Blood Count 15.9 K/mm3 (4.5-10.0)
[2022-12-30 06:20] LABS: Anion Gap 9 mmol/L (8-16); Blood Urea Nitrogen 8 mg/dL (7-17); Calcium 8.4 mg/dL (8.4-10.2); Carbon Dioxide 23 mmol/L (22-30); Chloride 105 mmol/L (98-107); Estimated CRCL calculation 83 ml/min; Estimated Glomerular Filt Rate > 60; Glucose 104 mg/dL (65-110); Magnesium 2.1 mg/dL (1.6-2.3); Potassium 3.5 mmol/L (3.4-5.0); Sodium 137 mmol/L (137-145)
[2022-12-30] MEDS: AMOXICILLIN/CLAVULANATE K 875-125 MG TAB 1 TABLET PO ×2 (09:18→20:26)
[2022-12-30] MEDS: POTASSIUM CHLORIDE 20 MEQ TABLET.ER PO ×2 (09:18→17:14)
[2022-12-30] MEDS: FOLIC ACID 1 MG TABLET PO (09:18)
[2022-12-30] MEDS: amLODIPine BESYLATE 5 MG TABLET 10 MG PO (09:19)
[2022-12-30] MEDS: ALPRAZolam (*CRX) 0.5 MG TABLET 2 MG PO ×3 (09:19→20:26)
[2022-12-30] MEDS: ENOXAPARIN 40 MG/0.4 ML SYRINGE SUB-Q (09:19)
[2022-12-30] MEDS: CYCLOBENZAPRINE HCL 10 MG TABLET PO ×3 (09:20→17:14)
[2022-12-30] MEDS: LOSARTAN POTASSIUM 50 MG TABLET PO (09:20)
[2022-12-30] MEDS: polyethylene glycoL 3350 17 GM POWD.PACK PO (12:31)
--- NOTE | 2022-12-30 13:29 | P.PNIM_ITS ---
Progress Note: A&P Assessment and Plan (1) Acute colitis: Code(s): K52.9 - Noninfective gastroenteritis and colitis, unspecified Status: Acute Assessment and Plan: Patient with abdominal pain, nausea and vomiting * CT showed colitis but no evidence of perforation. * Continue supportive care with iv fluids. * Patient still having difficulty tolerating solid diet. Continue to advance diet as tolerated * Consider GI consultation if no improvement and still unable to tolerate solids tomorrow * Supportive care to include antiemetics and analgesics * stool cultures ordered, awaiting specimen for collection * Continue p.o. Augmentin (2) Sepsis: Code(s): A41.9 - Sepsis, unspecified organism Status: Resolved Assessment and Plan: Resolved. patient met criteria for sepsis with leukocytosis and tachycardia. Source of infection colitis as above * Continue antibiotics * IV fluids discontinued as patient is tolerating oral intake * Trend WBC, overall improved * Afebrile (3) Positive blood culture: Code(s): R78.81 - Bacteremia Status: Acute Assessment and Plan: blood cultures with growth of staphylococcus epidermidis in 1 of 2 bottles * felt to be skin contaminant, not felt to be consistent with true infection * no need for further treatment at this time * vancomycin and Zosyn discontinued (4) UTI (urinary tract infection): Code(s): N39.0 - Urinary tract infection, site not specified Status: Acute Assessment and Plan: patient complained of dysuria, UA abnormal * urine culture with growth of Klebsiella pneumoniae * continue p.o. Augmentin based on susceptibility reports (5) Acute hypokalemia: Code(s): E87.6 - Hypokalemia Status: Acute Assessment and Plan: Likely due to vomiting and decreased PO intake * Potassium improved to 3.5 today * continue scheduled potassium supplementation and monitor BMP (6) KALIE (acute kidney injury): Code(s): N17.9 - Acute kidney failure, unspecified Status: Acute Assessment and Plan: resolved. Cr elevated to 1.5 on admission, likely prerenal azotemia * creatinine has normalized following IV fluid rehydration * Monitor BMP (7) Hypertension: Code(s): I10 - Essential (primary) hypertension Status: Acute Assessment and Plan: BP remaining stable * continue amlodipine and losartan Subjective Date/time seen: 12/30/22 13:29 Interval history: Date of service: 12/30/2022 Davin Cho is a 62-year-old female with history of hypertension, CVA with residual left sided weakness, hyperlipidemia, DVT s/p IVC filter, depression, fibromyalgia, and chronic fatigue syndrome who is seen in follow up for acute colitis. Patient complains of abdominal cramping today. States she was vomiting yesterday after attempting solid foods. She is tolerating liquids this morning but she still is struggling to tolerate solids. No episodes of emesis today. She denies nausea. She denies fevers or chills. States she is not passing flatus and has not had a bowel movement. She states that she has not been getting up and moving around much and was encouraged to increase mobility. She denies dizziness or lightheadedness. Review of Systems Review of Systems: All systems reviewed & are unremarkable except as noted in HPI and below Exam Narrative: General: well-nourished, well-appearing 62-year-old female,
--- NOTE | 2022-12-30 13:29 | PM.IMPN ---
Progress Note: A&P Assessment and Plan (1) Acute colitis: Code(s): K52.9 - Noninfective gastroenteritis and colitis, unspecified Status: Acute Assessment and Plan: Patient with abdominal pain, nausea and vomiting CT showed colitis but no evidence of perforation. Continue supportive care with iv fluids. Patient still having difficulty tolerating solid diet. Continue to advance diet as tolerated Consider GI consultation if no improvement and still unable to tolerate solids tomorrow Supportive care to include antiemetics and analgesics stool cultures ordered, awaiting specimen for collection Continue p.o. Augmentin (2) Sepsis: Code(s): A41.9 - Sepsis, unspecified organism Status: Resolved Assessment and Plan: Resolved. patient met criteria for sepsis with leukocytosis and tachycardia. Source of infection colitis as above Continue antibiotics IV fluids discontinued as patient is tolerating oral intake Trend WBC, overall improved Afebrile (3) Positive blood culture: Code(s): R78.81 - Bacteremia Status: Acute Assessment and Plan: blood cultures with growth of staphylococcus epidermidis in 1 of 2 bottles felt to be skin contaminant, not felt to be consistent with true infection no need for further treatment at this time vancomycin and Zosyn discontinued (4) UTI (urinary tract infection): Code(s): N39.0 - Urinary tract infection, site not specified Status: Acute Assessment and Plan: patient complained of dysuria, UA abnormal urine culture with growth of Klebsiella pneumoniae continue p.o. Augmentin based on susceptibility reports (5) Acute hypokalemia: Code(s): E87.6 - Hypokalemia Status: Acute Assessment and Plan: Likely due to vomiting and decreased PO intake Potassium improved to 3.5 today continue scheduled potassium supplementation and monitor BMP (6) KALIE (acute kidney injury): Code(s): N17.9 - Acute kidney failure, unspecified Status: Acute Assessment and Plan: resolved. Cr elevated to 1.5 on admission, likely prerenal azotemia creatinine has normalized following IV fluid rehydration Monitor BMP (7) Hypertension: Code(s): I10 - Essential (primary) hypertension Status: Acute Assessment and Plan: BP remaining stable continue amlodipine and losartan Subjective Date/time seen: 12/30/22 13:29 Interval history: Date of service: 12/30/2022 Davin Cho is a 62-year-old female with history of hypertension, CVA with residual left sided weakness, hyperlipidemia, DVT s/p IVC filter, depression, fibromyalgia, and chronic fatigue syndrome who is seen in follow up for acute colitis. Patient complains of abdominal cramping today. States she was vomiting yesterday after attempting solid foods. She is tolerating liquids this morning but she still is struggling to tolerate solids. No episodes of emesis today. She denies nausea. She denies fevers or chills. States she is not passing flatus and has not had a bowel movement. She states that she has not been getting up and moving around much and was encouraged to increase mobility. She denies dizziness or lightheadedness. Review of Systems Review of Systems: All systems reviewed & are unremarkable except as noted in HPI and below Exam Narrative: General: well-nourished, well-appearing 62-year-old female, sitting up in bed, comfortable Neuro: awake, alert and oriented x4, speech clear, no focal neuro deficits noted HEENMT:normocephalic, atraumatic, EOMI, sclerae anicteric Respiratory:clear to auscultation bilaterally, nonlabored breathing Cardio: regular rate, regular rhythm with S1-S2 Abdomen: nondistended, normoactive bowel sounds, soft, slightly tender to palpation Extremities: no edema, erythema, or tenderness to palpation, DP pulses 2+ bilaterally Skin: no rashes o
[2022-12-30] MEDS: ZOLPIDEM TARTRATE (*CRX) 5 MG TABLET PO (20:26)
[2022-12-30] MEDS: DOCUSATE SODIUM 100 MG CAPSULE PO (20:26)
[2022-12-30] MEDS: guanFACINE HCL 1 MG TABLET PO (20:26)
[2022-12-31] VITALS (10 sets, daily range): BP systolic 139–147; BP diastolic 56–70; PULSE 83–102; RESP 14–22; TEMP 36.3–36.9; O2SAT 97–98
[2022-12-31] MEDS: HYDROcodone/acetaminophen (*CRX) 5-325 MG TABLET 1 TAB PO ×3 (00:11→14:34)
[2022-12-31] MEDS: ONDANSETRON INJ 4 MG/2 ML VIAL IV PUSH ×4 (01:32→22:33)
[2022-12-31] MEDS: LEVOTHYROXINE SODIUM 100 MCG TABLET PO (05:35)
[2022-12-31 05:47] LABS: Hematocrit 34.3 % (37.0-47.0); Hemoglobin 11.6 g/dL (12.0-15.0); Mean Corpuscular HGB Conc 33.8 g/dl (32-36); Mean Corpuscular Hemoglobin 28.2 pg (26-34); Mean Corpuscular Volume 83.5 fl (80-100); Mean Platelet Volume 8.5 fl (7.4-10.4); Platelet Count Result 474 k/mm3 (150-375); Red Blood Count 4.11 M/mm3 (4.2-5.4); Red Cell Distribution Width 13.4 % (11.5-14.5); White Blood Count 15.8 K/mm3 (4.5-10.0)
[2022-12-31 06:05] LABS: Anion Gap 5 mmol/L (8-16); Blood Urea Nitrogen 8 mg/dL (7-17); Carbon Dioxide 25 mmol/L (22-30); Chloride 105 mmol/L (98-107); Estimated CRCL calculation 67 ml/min; Estimated Glomerular Filt Rate 56; Glucose 95 mg/dL (65-110); Potassium 3.7 mmol/L (3.4-5.0); Sodium 135 mmol/L (137-145)
[2022-12-31] MEDS: CYCLOBENZAPRINE HCL 10 MG TABLET PO ×3 (08:28→17:37)
[2022-12-31] MEDS: FOLIC ACID 1 MG TABLET PO (08:28)
[2022-12-31] MEDS: DOCUSATE SODIUM 100 MG CAPSULE PO ×2 (08:28→20:53)
[2022-12-31] MEDS: ENOXAPARIN 40 MG/0.4 ML SYRINGE SUB-Q (08:28)
[2022-12-31] MEDS: AMOXICILLIN/CLAVULANATE K 875-125 MG TAB 1 TABLET PO ×2 (08:29→20:53)
[2022-12-31] MEDS: polyethylene glycoL 3350 17 GM POWD.PACK PO (08:30)
[2022-12-31] MEDS: LOSARTAN POTASSIUM 50 MG TABLET PO (08:30)
[2022-12-31] MEDS: POTASSIUM CHLORIDE 20 MEQ TABLET.ER PO ×2 (08:30→17:37)
[2022-12-31] MEDS: ALPRAZolam (*CRX) 0.5 MG TABLET 2 MG PO ×2 (08:41→15:23)
[2022-12-31] MEDS: amLODIPine BESYLATE 5 MG TABLET 10 MG PO (08:42)
[2022-12-31] MEDS: MORPHINE SULFATE (*CRX) 4 MG/ML INJ 2 MG IV PUSH ×2 (12:05→18:53)
--- NOTE | 2022-12-31 15:00 | P.PNIM_ITS ---
Progress Note: A&P Assessment and Plan (1) Acute colitis: Code(s): K52.9 - Noninfective gastroenteritis and colitis, unspecified Status: Acute Assessment and Plan: Patient with abdominal pain, nausea and vomiting * CT showed colitis but no evidence of perforation. * Continue p.o. Augmentin * continue supportive care * Patient still having difficulty tolerating solid diet. Continue to advance diet as tolerated * stool cultures ordered, awaiting specimen for collection (2) Abdominal pain: Code(s): R10.9 - Unspecified abdominal pain Status: Acute Assessment and Plan: patient with persistent abdominal pain, unable to tolerate solids and reports no bowel movements * patient does have normal bowel sounds and is tolerating liquids without difficulty. No significant abdominal distension * may be due to ileus * will obtain XR obstructive series * consider GI or general surgery consultation based on results (3) Sepsis: Code(s): A41.9 - Sepsis, unspecified organism Status: Resolved Assessment and Plan: Resolved. patient met criteria for sepsis with leukocytosis and tachycardia. Source of infection colitis as above * Continue antibiotics * IV fluids discontinued as patient is tolerating oral intake * Trend WBC, overall improved, remaining stable * Afebrile (4) Positive blood culture: Code(s): R78.81 - Bacteremia Status: Acute Assessment and Plan: blood cultures with growth of staphylococcus epidermidis in 1 of 2 bottles * felt to be skin contaminant, not felt to be consistent with true infection * no need for further treatment at this time * vancomycin and Zosyn discontinued (5) UTI (urinary tract infection): Code(s): N39.0 - Urinary tract infection, site not specified Status: Acute Assessment and Plan: patient complained of dysuria, UA abnormal * urine culture with growth of Klebsiella pneumoniae * continue p.o. Augmentin based on susceptibility reports (6) Acute hypokalemia: Code(s): E87.6 - Hypokalemia Status: Acute Assessment and Plan: Likely due to vomiting and decreased PO intake * Potassium improved to 3.7 today * continue scheduled potassium supplementation and monitor BMP (7) KALIE (acute kidney injury): Code(s): N17.9 - Acute kidney failure, unspecified Status: Acute Assessment and Plan: resolved. Cr elevated to 1.5 on admission, likely prerenal azotemia * creatinine has normalized following IV fluid rehydration * Monitor BMP (8) Hypertension: Code(s): I10 - Essential (primary) hypertension Status: Acute Assessment and Plan: BP remaining stable * continue amlodipine and losartan Subjective Date/time seen: 12/31/22 15:00 Interval history: Date of service: 12/30/2022 Davin Cho is a 62-year-old female with history of hypertension, CVA with residual left sided weakness, hyperlipidemia, DVT s/p IVC filter, depression, fibromyalgia, and chronic fatigue syndrome who is seen in follow up for acute colitis. complains of continued abdominal pain today. States that she has been able to tolerate clears but has not been able to tolerate any solids. She says that she tends to eat solids but they have no where to go and she cannot keep them down. Reports episode of vomiting last night. No emesis today with clear liquids. States she has not had a bowel movement and endorses abdominal cramping. Sh
--- NOTE | 2022-12-31 15:00 | PM.IMPN ---
Progress Note: A&P Assessment and Plan (1) Acute colitis: Code(s): K52.9 - Noninfective gastroenteritis and colitis, unspecified Status: Acute Assessment and Plan: Patient with abdominal pain, nausea and vomiting CT showed colitis but no evidence of perforation. Continue p.o. Augmentin continue supportive care Patient still having difficulty tolerating solid diet. Continue to advance diet as tolerated stool cultures ordered, awaiting specimen for collection (2) Abdominal pain: Code(s): R10.9 - Unspecified abdominal pain Status: Acute Assessment and Plan: patient with persistent abdominal pain, unable to tolerate solids and reports no bowel movements patient does have normal bowel sounds and is tolerating liquids without difficulty. No significant abdominal distension may be due to ileus will obtain XR obstructive series consider GI or general surgery consultation based on results (3) Sepsis: Code(s): A41.9 - Sepsis, unspecified organism Status: Resolved Assessment and Plan: Resolved. patient met criteria for sepsis with leukocytosis and tachycardia. Source of infection colitis as above Continue antibiotics IV fluids discontinued as patient is tolerating oral intake Trend WBC, overall improved, remaining stable Afebrile (4) Positive blood culture: Code(s): R78.81 - Bacteremia Status: Acute Assessment and Plan: blood cultures with growth of staphylococcus epidermidis in 1 of 2 bottles felt to be skin contaminant, not felt to be consistent with true infection no need for further treatment at this time vancomycin and Zosyn discontinued (5) UTI (urinary tract infection): Code(s): N39.0 - Urinary tract infection, site not specified Status: Acute Assessment and Plan: patient complained of dysuria, UA abnormal urine culture with growth of Klebsiella pneumoniae continue p.o. Augmentin based on susceptibility reports (6) Acute hypokalemia: Code(s): E87.6 - Hypokalemia Status: Acute Assessment and Plan: Likely due to vomiting and decreased PO intake Potassium improved to 3.7 today continue scheduled potassium supplementation and monitor BMP (7) KALIE (acute kidney injury): Code(s): N17.9 - Acute kidney failure, unspecified Status: Acute Assessment and Plan: resolved. Cr elevated to 1.5 on admission, likely prerenal azotemia creatinine has normalized following IV fluid rehydration Monitor BMP (8) Hypertension: Code(s): I10 - Essential (primary) hypertension Status: Acute Assessment and Plan: BP remaining stable continue amlodipine and losartan Subjective Date/time seen: 12/31/22 15:00 Interval history: Date of service: 12/30/2022 Davin Cho is a 62-year-old female with history of hypertension, CVA with residual left sided weakness, hyperlipidemia, DVT s/p IVC filter, depression, fibromyalgia, and chronic fatigue syndrome who is seen in follow up for acute colitis. complains of continued abdominal pain today. States that she has been able to tolerate clears but has not been able to tolerate any solids. She says that she tends to eat solids but they have no where to go and she cannot keep them down. Reports episode of vomiting last night. No emesis today with clear liquids. States she has not had a bowel movement and endorses abdominal cramping. She denies bloating or distention. Denies fever, chills, shortness of breath, cough, chest pain, palpitations. Review of Systems Review of Systems: All systems reviewed & are unremarkable except as noted in HPI and below Exam Narrative: General: well-nourished, well-appearing 62-year-old female, sitting up in bed, comfortable Neuro: awake, alert and oriented x4, speech clear, no focal neuro deficits noted HEENMT:normocephalic, atraum
[2022-12-31] MEDS: BISACODYL 10 MG SUPPOSITORY RECTAL (18:17)
[2022-12-31] MEDS: guanFACINE HCL 1 MG TABLET PO (20:53)
[2022-12-31] MEDS: ZOLPIDEM TARTRATE (*CRX) 5 MG TABLET PO (20:53)
[2022-12-31] MEDS: ACETAMINOPHEN 325 MG TABLET 650 MG PO (22:34)
--- NOTE | 2022-12-31 22:57 | PC.NURSE ---
stool samples sent to lab for analysis
[2023-01-01] VITALS (9 sets, daily range): BP systolic 115–129; BP diastolic 46–96; PULSE 84–104; RESP 17–18; TEMP 36.8–37.1; O2SAT 95–100
[2023-01-01] MEDS: LEVOTHYROXINE SODIUM 100 MCG TABLET PO (05:41)
[2023-01-01 06:07] LABS: Hematocrit 36.5 % (37.0-47.0); Hemoglobin 12.1 g/dL (12.0-15.0); Mean Corpuscular HGB Conc 33.2 g/dl (32-36); Mean Corpuscular Hemoglobin 27.9 pg (26-34); Mean Corpuscular Volume 84.3 fl (80-100); Mean Platelet Volume 8.4 fl (7.4-10.4); Platelet Count Result 538 k/mm3 (150-375); Red Blood Count 4.33 M/mm3 (4.2-5.4); Red Cell Distribution Width 13.7 % (11.5-14.5)
[2023-01-01 06:19] LABS: Anion Gap 6 mmol/L (8-16); Blood Urea Nitrogen 10 mg/dL (7-17); Calcium 8.1 mg/dL (8.4-10.2); Carbon Dioxide 23 mmol/L (22-30); Chloride 107 mmol/L (98-107); Estimated CRCL calculation 74 ml/min; Estimated Glomerular Filt Rate > 60; Glucose 93 mg/dL (65-110); Potassium 3.7 mmol/L (3.4-5.0); Sodium 136 mmol/L (137-145)
[2023-01-01] MEDS: AMOXICILLIN/CLAVULANATE K 875-125 MG TAB 1 TABLET PO (09:16)
[2023-01-01] MEDS: ENOXAPARIN 40 MG/0.4 ML SYRINGE SUB-Q (09:16)
[2023-01-01] MEDS: FOLIC ACID 1 MG TABLET PO (09:16)
[2023-01-01] MEDS: amLODIPine BESYLATE 5 MG TABLET 10 MG PO (09:16)
[2023-01-01] MEDS: CYCLOBENZAPRINE HCL 10 MG TABLET PO ×3 (09:16→17:29)
[2023-01-01] MEDS: DOCUSATE SODIUM 100 MG CAPSULE PO (09:16)
[2023-01-01] MEDS: LOSARTAN POTASSIUM 50 MG TABLET PO (09:16)
[2023-01-01] MEDS: POTASSIUM CHLORIDE 20 MEQ TABLET.ER PO ×2 (09:16→17:29)
--- NOTE | 2023-01-01 12:32 | PM.CNGS ---
Assessment and Plan Assessment and plan (1) Acute colitis: Code(s): K52.9 - Noninfective gastroenteritis and colitis, unspecified Status: Acute Assessment and Plan: patient has evidence of persistent colitis. I have reviewed the CT from admission and today. She has not responded to oral Augmentin. Will cancel Augmentin and start IV Zosyn. Continue clear liquids until symptoms are improving. It would benefit to have GI consultation as well. I do not see any acute surgical needs at this time, but will continue to follow for any worsening evidence of colitis or perforation. History of Present Illness Consult details Consult date: 01/01/23 Reason for consult: abdominal pain Requesting physician: Swati Ojeda PA-C Narrative: A 62-year-old woman who I am asked to see for abdominal pain and colitis. She has been hospitalized for about 1 week already. She was experiencing left subcostal pain but denied any significant diarrhea. She did state she was feeling constipated and was having difficulty having bowel movements. She has also been experiencing intermittent nausea and vomiting for the past couple months. She denies any blood in her stool. She initially had a CT which showed evidence of descending and sigmoid colitis she was admitted for further treatment. She has been on oral Augmentin but has not seen any significant improvement. She denies any fevers or chills. Repeat CT was done today which showed persistent descending sigmoid colitis. Review of Systems Review of Systems: All systems reviewed & are unremarkable except as noted in HPI and below Constitutional: Constitutional: Denies chills and Denies fever(s) Eyes: Eyes: Denies change in vision ENT: Denies hearing loss, Denies neck pain and Denies sore throat Cardiovascular: Cardiovascular: Denies chest pain and Denies dyspnea Respiratory: Respiratory: Denies cough, Denies dyspnea and Denies wheezing Gastrointestinal: Gastrointestinal: Reports as per HPI Genitourinary: Genitourinary: Denies hematuria and Denies dysuria Musculoskeletal: Musculoskeletal: Denies arthralgias, Denies joint swelling and Denies neck pain Allergic/Immunologic: Allergic/Immunologic: Denies wheezing [facility], [facility] Past Medical History Medical History (Updated 01/01/23 @ 12:36 by Wayne Millan DO) Hypertension Hypothyroid Surgical History Surgical History (Updated 01/01/23 @ 12:35 by Wayne Millan DO) History of sinus surgery S/P IVC filter Social History Social History Smoking packs per day: 0.5 Smoking cigarettes per day: 10.0 Smoking status: Current every day smoker Tobacco type: cigarettes Alcohol intake: never Substance use: current Substance use type: marijuana Last use: 12/20/2022 Lack of Transportation: No Lack of Food: Never True Current Housing: I Have Housing Concerned About Future Housing: No Difficulty Paying Gas/Electric Bills: YES Difficulty Paying for Meds: No Currently Unemployed: No Education: High School Diploma/GED Difficulty w/ Childcare or Family Care: No Spiritual care concerns: No Meds Home Medications and Allergies Home Medications Medication Instructions Recorded Confirmed Type alprazolam 2 mg tablet 2 mg PO TID 12/27/22 12/27/22 History amlodipine 10 mg tablet 10 mg PO DAILY 12/27/22 12/27/22 History biotin 10,000 mcg chewable tablet 10,000 mcg PO DAILY 12/27/22 12/27/22 History (Hair, Skin and Nails (biotin)) cyclobenzaprine 10 mg tablet 10 mg PO TID 12/27/22 12/27/22 History folic acid 1 mg tablet 1 mg PO DAILY 12/27/22 12/27/22 History guanfacine 1 mg tablet 1 mg PO HS 12/27/22 12/27/22 History hydrochlorothiazide 25 mg tablet 25 mg PO DAILY 12/27/22 12/27/22 History levothyroxine 100 mcg tablet 100 mcg PO DAILY 12/27/22 12/27/22 History losartan 50 mg tablet 50 mg PO DAILY 12/27/22 12/27/22 History ondansetro
[2023-01-01] MEDS: ONDANSETRON INJ 4 MG/2 ML VIAL IV PUSH (13:56)
[2023-01-01] MEDS: PIPERACILLN/TAZ 3.375GM/NS50ML 3.375 GM/50 ML BAG IVPB ×3 (13:56→23:17)
[2023-01-01] MEDS: MORPHINE SULFATE (*CRX) 4 MG/ML INJ IV PUSH (13:56)
--- NOTE | 2023-01-01 15:36 | P.PNIM_ITS ---
Progress Note: A&P Assessment and Plan (1) Acute colitis: Code(s): K52.9 - Noninfective gastroenteritis and colitis, unspecified Status: Acute Assessment and Plan: Patient with abdominal pain, nausea and vomiting * CT showed colitis but no evidence of perforation. * Stool cultures pending * Continue supportive care * Transitioned to IV Zosyn today per General surgery recommendations * Appreciate general surgery and Gastroenterology consultation (2) Abdominal pain: Code(s): R10.9 - Unspecified abdominal pain Status: Acute Assessment and Plan: patient with persistent abdominal pain, unable to tolerate solids * Obstructive series on 12/31 demonstrated multiple loops of mildly dilated large bowel with large volume of colonic fecal material. Reportedly patient had multiple bowel movements overnight. CT of the abdomen/pelvis today shows colitis involving the descending and sigmoid colon with large volume of stool in the colon, no dilated * Appreciate gastroenterology and general surgery consultation * Supportive care (3) Sepsis: Code(s): A41.9 - Sepsis, unspecified organism Status: Resolved Assessment and Plan: Resolved. patient met criteria for sepsis with leukocytosis and tachycardia. Source of infection colitis as above * Continue antibiotics * IV fluids discontinued as patient is tolerating oral intake * Trend WBC, overall improved, remaining consistent around 15 * Afebrile (4) Positive blood culture: Code(s): R78.81 - Bacteremia Status: Acute Assessment and Plan: blood cultures with growth of staphylococcus epidermidis in 1 of 2 bottles * felt to be skin contaminant, not felt to be consistent with true infection * no need for further treatment at this time * vancomycin discontinued (5) UTI (urinary tract infection): Code(s): N39.0 - Urinary tract infection, site not specified Status: Acute Assessment and Plan: patient complained of dysuria, UA abnormal * urine culture with growth of Klebsiella pneumoniae * on appropriate antibiotic therapy, now on Zosyn (6) Acute hypokalemia: Code(s): E87.6 - Hypokalemia Status: Acute Assessment and Plan: Likely due to vomiting and decreased PO intake * Potassium improved to 3.7 today * continue scheduled potassium supplementation and monitor BMP (7) KALIE (acute kidney injury): Code(s): N17.9 - Acute kidney failure, unspecified Status: Acute Assessment and Plan: resolved. Cr elevated to 1.5 on admission, likely prerenal azotemia * creatinine has normalized following IV fluid rehydration * Monitor BMP (8) Hypertension: Code(s): I10 - Essential (primary) hypertension Status: Acute Assessment and Plan: BP remaining stable * continue amlodipine and losartan Subjective Date/time seen: 01/01/23 15:36 Interval history: Date of service: 01/01/2023 Davin Cho is a 62-year-old female with history of hypertension, CVA with residual left sided weakness, hyperlipidemia, DVT s/p IVC filter, depression, fibromyalgia, and chronic fatigue syndrome who is seen in follow up for acute colitis. Patient states the last night she had multiple large volume bowel movements. Today she complains of abdominal cramping. She denies bloating. She endorses nausea but no emesis. She is tolerating clear liquids but has not had any solids. She denies fevers, chills, dizziness, lightheade
--- NOTE | 2023-01-01 15:36 | PM.IMPN ---
Progress Note: A&P Assessment and Plan (1) Acute colitis: Code(s): K52.9 - Noninfective gastroenteritis and colitis, unspecified Status: Acute Assessment and Plan: Patient with abdominal pain, nausea and vomiting CT showed colitis but no evidence of perforation. Stool cultures pending Continue supportive care Transitioned to IV Zosyn today per General surgery recommendations Appreciate general surgery and Gastroenterology consultation (2) Abdominal pain: Code(s): R10.9 - Unspecified abdominal pain Status: Acute Assessment and Plan: patient with persistent abdominal pain, unable to tolerate solids Obstructive series on 12/31 demonstrated multiple loops of mildly dilated large bowel with large volume of colonic fecal material. Reportedly patient had multiple bowel movements overnight. CT of the abdomen/pelvis today shows colitis involving the descending and sigmoid colon with large volume of stool in the colon, no dilated Appreciate gastroenterology and general surgery consultation Supportive care (3) Sepsis: Code(s): A41.9 - Sepsis, unspecified organism Status: Resolved Assessment and Plan: Resolved. patient met criteria for sepsis with leukocytosis and tachycardia. Source of infection colitis as above Continue antibiotics IV fluids discontinued as patient is tolerating oral intake Trend WBC, overall improved, remaining consistent around 15 Afebrile (4) Positive blood culture: Code(s): R78.81 - Bacteremia Status: Acute Assessment and Plan: blood cultures with growth of staphylococcus epidermidis in 1 of 2 bottles felt to be skin contaminant, not felt to be consistent with true infection no need for further treatment at this time vancomycin discontinued (5) UTI (urinary tract infection): Code(s): N39.0 - Urinary tract infection, site not specified Status: Acute Assessment and Plan: patient complained of dysuria, UA abnormal urine culture with growth of Klebsiella pneumoniae on appropriate antibiotic therapy, now on Zosyn (6) Acute hypokalemia: Code(s): E87.6 - Hypokalemia Status: Acute Assessment and Plan: Likely due to vomiting and decreased PO intake Potassium improved to 3.7 today continue scheduled potassium supplementation and monitor BMP (7) KALIE (acute kidney injury): Code(s): N17.9 - Acute kidney failure, unspecified Status: Acute Assessment and Plan: resolved. Cr elevated to 1.5 on admission, likely prerenal azotemia creatinine has normalized following IV fluid rehydration Monitor BMP (8) Hypertension: Code(s): I10 - Essential (primary) hypertension Status: Acute Assessment and Plan: BP remaining stable continue amlodipine and losartan Subjective Date/time seen: 01/01/23 15:36 Interval history: Date of service: 01/01/2023 Davin Cho is a 62-year-old female with history of hypertension, CVA with residual left sided weakness, hyperlipidemia, DVT s/p IVC filter, depression, fibromyalgia, and chronic fatigue syndrome who is seen in follow up for acute colitis. Patient states the last night she had multiple large volume bowel movements. Today she complains of abdominal cramping. She denies bloating. She endorses nausea but no emesis. She is tolerating clear liquids but has not had any solids. She denies fevers, chills, dizziness, lightheadedness, weakness, shortness breath, cough, or chest pain. States that she feels extremely stressed and exhausted. States that she is ?terrified? because she feels like she is not getting better. She also states that she is easily overwhelmed and over stimulated and request that only 1 person enter her room at a time and the door remain closed. Review of Systems Review of Systems: All systems reviewed & are unremarkable except as noted i
[2023-01-01] MEDS: HYDROcodone/acetaminophen (*CRX) 5-325 MG TABLET 1 TAB PO (17:48)
[2023-01-01] MEDS: guanFACINE HCL 1 MG TABLET PO (20:07)
[2023-01-01] MEDS: ZOLPIDEM TARTRATE (*CRX) 5 MG TABLET PO (20:09)
[2023-01-01] MEDS: ACETAMINOPHEN 325 MG TABLET 650 MG PO (20:09)
[2023-01-02] MEDS: ONDANSETRON INJ 4 MG/2 ML VIAL IV PUSH ×4 (03:29→19:48)
[2023-01-02] MEDS: ACETAMINOPHEN 325 MG TABLET 650 MG PO ×2 (03:30→08:05)
[2023-01-02] MEDS: PIPERACILLN/TAZ 3.375GM/NS50ML 3.375 GM/50 ML BAG IVPB ×4 (05:29→23:34)
[2023-01-02] MEDS: LEVOTHYROXINE SODIUM 100 MCG TABLET PO (05:30)
[2023-01-02 05:31] VITALS: BP 131/60; PULSE 76; RESP 18; TEMP 36.7; O2SAT 97
[2023-01-02 06:15] LABS: Basophils Absolute Auto 0.1 K/mm3 (0.0-0.1); Basophils Percent Auto 0.8 % (0.2-1.2); Eosinophils Absolute Auto 0.4 K/mm3 (0-0.3); Eosinophils Percent Auto 3.4 % (0-4.4); Hematocrit 36.5 % (37.0-47.0); Immature Granulocyte Absolute 0.64 K/mm3 (0.00-0.031); Immature Granulocyte Percent A 5.5 % (0-0.5); Lymphocytes Absolute Auto 3.57 K/mm3 (0.9-3.2); Lymphocytes Percent Auto 30.8 % (18.3-44.2); Mean Corpuscular HGB Conc 32.9 g/dl (32-36); Mean Corpuscular Hemoglobin 28.3 pg (26-34); Mean Corpuscular Volume 86.1 fl (80-100); Mean Platelet Volume 8.1 fl (7.4-10.4); Monocytes Absolute Auto 1.1 K/mm3 (0.1-0.6); Monocytes Percent Auto 9.7 % (2.6-8.5); Neutrophils Absolute Auto 5.8 K/mm3 (1.3-6.7); Neutrophils Percent Auto 49.8 % (45.5-73.1); Platelet Count Result 541 k/mm3 (150-375); Red Blood Count 4.24 M/mm3 (4.2-5.4); Red Cell Distribution Width 14.2 % (11.5-14.5); White Blood Count 11.6 K/mm3 (4.5-10.0)
[2023-01-02 06:27] LABS: Anion Gap 6 mmol/L (8-16); Blood Urea Nitrogen 11 mg/dL (7-17); Calcium 8.2 mg/dL (8.4-10.2); Carbon Dioxide 27 mmol/L (22-30); Chloride 107 mmol/L (98-107); Estimated CRCL calculation 74 ml/min; Estimated Glomerular Filt Rate > 60; Glucose 94 mg/dL (65-110); Potassium 3.9 mmol/L (3.4-5.0); Sodium 140 mmol/L (137-145)
[2023-01-02 07:08] LABS: Platelet Estimate Increased (Adequate); Schistocytes None Seen (NORMAL)
[2023-01-02] MEDS: ENOXAPARIN 40 MG/0.4 ML SYRINGE SUB-Q (08:06)
[2023-01-02] MEDS: DOCUSATE SODIUM 100 MG CAPSULE PO (08:07)
[2023-01-02] MEDS: CYCLOBENZAPRINE HCL 10 MG TABLET PO ×3 (08:07→16:44)
[2023-01-02 08:08] VITALS: RESP 18; O2SAT 97
[2023-01-02] MEDS: FOLIC ACID 1 MG TABLET PO (08:08)
[2023-01-02] MEDS: amLODIPine BESYLATE 5 MG TABLET 10 MG PO (08:08)
[2023-01-02] MEDS: POTASSIUM CHLORIDE 20 MEQ TABLET.ER PO ×2 (08:08→16:44)
[2023-01-02] MEDS: LOSARTAN POTASSIUM 50 MG TABLET PO (08:08)
--- NOTE | 2023-01-02 11:35 | PM.PNGS ---
Progress Note: A&P Assessment and Plan (1) Acute colitis: Code(s): K52.9 - Noninfective gastroenteritis and colitis, unspecified Status: Acute Assessment and Plan: Non-surgical. Tolerating liquids and bowels moving. Treat per GI recs. Will sign off. Subjective Subjective Date/Time Seen: 01/02/23 11:35 Interval history: Still having pain. Afebrile. Tolerating clears. Bowels moving. Exam GI: Inspection: non-distended GI Palp: Yes Soft to palpation and Yes Tenderness to palpation present (GI) (LUQ) Objective Data Vital Signs Vital Signs: Vital Signs - 24 hr 01/01/23 14:00 01/01/23 12:00 01/01/23 16:00 Temperature 37.1 C Pulse Rate 95 92 96 Respiratory Rate 18 Blood Pressure 129/58 L Pulse Oximetry 100 Oxygen Delivery 01/01/23 19:43 01/01/23 20:58 01/02/23 05:31 Temperature 36.8 C 36.7 C Pulse Rate 87 76 Respiratory Rate 17 18 Blood Pressure 118/96 H 131/60 Pulse Oximetry 100 95 97 Oxygen Delivery Room Air 01/02/23 08:08 Temperature Pulse Rate Respiratory Rate 18 Blood Pressure Pulse Oximetry 97 Oxygen Delivery Room Air Intake/Output Intake/Output: Intake & Output 12/30/22 12/31/22 01/01/23 01/02/23 23:59 23:59 23:59 23:59 Intake Total 1940 1300 1550 250 Output Total 3475 1181 909 2360 Balance -1535 -200 994 -1350 Meds/Results Medications: Active Medications Generic Name Dose Route Start Last Admin Trade Name Freq PRN Reason Stop Dose Admin Acetaminophen 650 mg 12/28/22 16:33 01/02/23 08:05 Acetaminophen 325 Mg Tablet PO 650 mg Q4H PRN Administration Pain 1-3 Hydrocodone Bitart/Acetaminophen 1 tab 12/28/22 16:33 01/01/23 17:48 Hydrocodone/Acetaminophen (*Crx) 5-325 Mg Tablet PO 1 tab Q6H PRN Administration Pain Rated 4-6 Alprazolam 2 mg 12/27/22 16:50 12/31/22 15:23 Alprazolam (*Crx) 0.5 Mg Tablet PO 2 mg TID PRN Administration Anxiety Amlodipine Besylate 10 mg 12/28/22 09:00 01/02/23 08:08 Amlodipine Besylate 5 Mg Tablet PO 10 mg DAILY DANY Administration Bisacodyl 10 mg 12/31/22 17:59 12/31/22 18:17 Bisacodyl 10 Mg Suppository RECTAL 10 mg QAM PRN Administration Constipation Cyclobenzaprine HCl 10 mg 12/27/22 17:00 01/02/23 08:07 Cyclobenzaprine Hcl 10 Mg Tablet PO 10 mg TID DANY Administration Docusate Sodium 100 mg 12/30/22 21:00 01/02/23 08:07 Docusate Sodium 100 Mg Capsule PO 100 mg Q12HR DANY Administration Enoxaparin Sodium 40 mg 12/27/22 09:00 01/02/23 08:06 Enoxaparin 40 Mg/0.4 Ml Syringe SUB-Q 40 mg DAILY DANY Administration Folic Acid 1 mg 12/28/22 09:00 01/02/23 08:08 Folic Acid 1 Mg Tablet PO 1 mg DAILY DANY Administration Guanfacine HCl 1 mg 12/27/22 21:00 01/01/23 20:07 Guanfacine Hcl 1 Mg Tablet PO 1 mg HS DANY Administration Piperacillin/Tazobactam/Dextrose 3.375 gm in 50 mls @ 100 mls/hr 01/01/23 12:35 01/02/23 05:29 Zosyn 3.375 Gm/Ns 50 Ml IVPB 100 mls/hr Q6HR DANY Administration Levothyroxine Sodium 100 mcg 12/28/22 06:30 01/02/23 05:30 Levothyroxine Sodium 100 Mcg Tablet PO 100 mcg DAILY@0630 DANY Administration Losartan Potassium 50 mg 12/28/22 09:00 01/02/23 08:08 Losartan Potassium 50 Mg Tablet PO 50 mg DAILY DANY Administration Morphine Sulfate 4 mg 01/01/23 12:32 01/01/23 13:56 Morphine Sulfate (*Crx) 4 Mg/Ml Inj IV PUSH 4 mg Q4H PRN Administration Pain Rated 7-10 Ondansetron HCl 4 mg 12/27/22 00:19 01/02/23 08:05 Ondansetron Inj 4 Mg/2 Ml Vial IV PUSH 4 mg Q4H PRN Administration Nausea Polyethylene Glycol 17 gm 12/30/22 11:56 12/31/22 08:30 Polyethylene Glycol 3350 17 Gm Powd.Pack PO 17 gm QAM PRN Administration Constipation Potassium Chloride 20 meq 12/29/22 09:00 01/02/23 08:08 Potassium Chloride 20 Meq Tablet.Er PO 20 meq BIDWM DANY Administration Zolpidem Tartrate 5 mg 11/30
--- NOTE | 2023-01-02 12:37 | P.PNIM_ITS ---
Progress Note: A&P Assessment and Plan (1) Acute colitis: Code(s): K52.9 - Noninfective gastroenteritis and colitis, unspecified Status: Acute Assessment and Plan: Patient with abdominal pain, nausea and vomiting * CT showed colitis but no evidence of perforation. * Stool cultures pending * Continue supportive care * Continue IV Zosyn * Appreciate general surgery and Gastroenterology consultation (2) Abdominal pain: Code(s): R10.9 - Unspecified abdominal pain Status: Acute Assessment and Plan: patient with persistent abdominal pain, unable to tolerate solids * Obstructive series on 12/31 demonstrated multiple loops of mildly dilated large bowel with large volume of colonic fecal material. CT of the abdomen/pelvis on 01/01 showed colitis involving the descending and sigmoid colon with large volume of stool in the colon, no dilated * Patient having multiple bowel movements * Appreciate gastroenterology and general surgery consultation * Supportive care (3) Sepsis: Code(s): A41.9 - Sepsis, unspecified organism Status: Resolved Assessment and Plan: Resolved. patient met criteria for sepsis with leukocytosis and tachycardia. Source of infection colitis as above * Continue antibiotics * IV fluids discontinued as patient is tolerating oral intake * Trend WBC, overall improved, down to 11.6 today * Afebrile (4) Positive blood culture: Code(s): R78.81 - Bacteremia Status: Acute Assessment and Plan: blood cultures with growth of staphylococcus epidermidis in 1 of 2 bottles * felt to be skin contaminant, not felt to be consistent with true infection * no need for further treatment at this time * vancomycin discontinued (5) UTI (urinary tract infection): Code(s): N39.0 - Urinary tract infection, site not specified Status: Acute Assessment and Plan: patient complained of dysuria, UA abnormal * urine culture with growth of Klebsiella pneumoniae * on appropriate antibiotic therapy, now on Zosyn (6) Acute hypokalemia: Code(s): E87.6 - Hypokalemia Status: Acute Assessment and Plan: Likely due to vomiting and decreased PO intake * Potassium stable at this time. 3.9 today * continue scheduled potassium supplementation and monitor BMP (7) KALIE (acute kidney injury): Code(s): N17.9 - Acute kidney failure, unspecified Status: Acute Assessment and Plan: resolved. Cr elevated to 1.5 on admission, likely prerenal azotemia * creatinine has normalized following IV fluid rehydration * Monitor BMP (8) Hypertension: Code(s): I10 - Essential (primary) hypertension Status: Acute Assessment and Plan: BP remaining stable * continue amlodipine and losartan Subjective Date/time seen: 01/02/23 12:37 Interval history: Date of service: 01/01/2023 Davin Cho is a 62-year-old female with history of hypertension, CVA with residual left sided weakness, hyperlipidemia, DVT s/p IVC filter, de pression, fibromyalgia, and chronic fatigue syndrome who is seen in follow up for acute colitis. Patient states that she is having a lot of pain today in her mid abdomen. States that she is having a ?rough time. She is tearful, stating that she is very stressed due to the pain she is in. She cannot get comfortable and is needing assistance repositioning herself in bed. She states that part of this is due to feeling claustrophobic in bed. She states
--- NOTE | 2023-01-02 12:37 | PM.IMPN ---
Progress Note: A&P Assessment and Plan (1) Acute colitis: Code(s): K52.9 - Noninfective gastroenteritis and colitis, unspecified Status: Acute Assessment and Plan: Patient with abdominal pain, nausea and vomiting CT showed colitis but no evidence of perforation. Stool cultures pending Continue supportive care Continue IV Zosyn Appreciate general surgery and Gastroenterology consultation (2) Abdominal pain: Code(s): R10.9 - Unspecified abdominal pain Status: Acute Assessment and Plan: patient with persistent abdominal pain, unable to tolerate solids Obstructive series on 12/31 demonstrated multiple loops of mildly dilated large bowel with large volume of colonic fecal material. CT of the abdomen/pelvis on 01/01 showed colitis involving the descending and sigmoid colon with large volume of stool in the colon, no dilated Patient having multiple bowel movements Appreciate gastroenterology and general surgery consultation Supportive care (3) Sepsis: Code(s): A41.9 - Sepsis, unspecified organism Status: Resolved Assessment and Plan: Resolved. patient met criteria for sepsis with leukocytosis and tachycardia. Source of infection colitis as above Continue antibiotics IV fluids discontinued as patient is tolerating oral intake Trend WBC, overall improved, down to 11.6 today Afebrile (4) Positive blood culture: Code(s): R78.81 - Bacteremia Status: Acute Assessment and Plan: blood cultures with growth of staphylococcus epidermidis in 1 of 2 bottles felt to be skin contaminant, not felt to be consistent with true infection no need for further treatment at this time vancomycin discontinued (5) UTI (urinary tract infection): Code(s): N39.0 - Urinary tract infection, site not specified Status: Acute Assessment and Plan: patient complained of dysuria, UA abnormal urine culture with growth of Klebsiella pneumoniae on appropriate antibiotic therapy, now on Zosyn (6) Acute hypokalemia: Code(s): E87.6 - Hypokalemia Status: Acute Assessment and Plan: Likely due to vomiting and decreased PO intake Potassium stable at this time. 3.9 today continue scheduled potassium supplementation and monitor BMP (7) KALIE (acute kidney injury): Code(s): N17.9 - Acute kidney failure, unspecified Status: Acute Assessment and Plan: resolved. Cr elevated to 1.5 on admission, likely prerenal azotemia creatinine has normalized following IV fluid rehydration Monitor BMP (8) Hypertension: Code(s): I10 - Essential (primary) hypertension Status: Acute Assessment and Plan: BP remaining stable continue amlodipine and losartan Subjective Date/time seen: 01/02/23 12:37 Interval history: Date of service: 01/01/2023 Davin Cho is a 62-year-old female with history of hypertension, CVA with residual left sided weakness, hyperlipidemia, DVT s/p IVC filter, depression, fibromyalgia, and chronic fatigue syndrome who is seen in follow up for acute colitis. Patient states that she is having a lot of pain today in her mid abdomen. States that she is having a ?rough time. She is tearful, stating that she is very stressed due to the pain she is in. She cannot get comfortable and is needing assistance repositioning herself in bed. She states that part of this is due to feeling claustrophobic in bed. She states that she is ?frantic? and feels that she is never going to get out of the hospital. She really wants to go home but knows that with her pain she could not go home at this time. Reports having several bowel movements yesterday. She is tolerating clears without difficulty. She endorses being sensitive to light and sound disturbances. She feels overwhelmed. Offered support including that of poke in or social work, patient states that she w
[2023-01-02] MEDS: ALPRAZolam (*CRX) 0.5 MG TABLET 2 MG PO (13:46)
[2023-01-02 14:00] VITALS: BP 122/82; PULSE 95; RESP 18; TEMP 36.9; O2SAT 95
[2023-01-02] MEDS: MORPHINE SULFATE (*CRX) 4 MG/ML INJ IV PUSH ×2 (15:29→22:28)
--- NOTE | 2023-01-02 15:38 | WPDGICN ---
Assessment and Plan Assessment and plan (1) Generalized abdominal pain: Code(s): R10.84 - Generalized abdominal pain Status: Acute Assessment and Plan: chronic in nature but lately worse she has h/o ibs-c possible mild left sided colitis, she does not want to get a full colonoscopy- will attempt sigmoidoscopy even if she is unable to tolerate bowel prep (2) Acute colitis: Code(s): K52.9 - Noninfective gastroenteritis and colitis, unspecified Status: Acute Assessment and Plan: on treatment (3) Sepsis: Code(s): A41.9 - Sepsis, unspecified organism Status: Resolved Assessment and Plan: on abx ? from colitis GI Consult Note Consult date/time: 01/02/23 15:38 Reason for consult: chronic abdominal pain, colitis HPI: Davin Cho is a 62 year old female with history of htn, cva with left sided residual, dvt s/p ivc filter placement, depression/fibromyalgia, chronic fatigue syndrome, eating disorder and IBS-C for years (used librax as needed, linzess did not help). she has home health which comes to her house and helps with her food, dressing and bathing. She has chronic abdominal pain but week prior admission worsened and also had emesis, admitted few days ago and diagnosed with mild colitis. She denies fever or diarrhea, actually at baseline she has constipation. Still with ongoing abdominal pain, crampy colicky. CT scan showed mild left sided colitis. Still poor appetite. Last colonoscopy per patient about 10 years ago. Review of Systems Constitutional: Constitutional: Reports fatigue Eyes: Comments: legally blind ENT: Reports Normal hearing present Cardiovascular: Cardiovascular: Denies chest pain Respiratory: Respiratory: Denies cough Gastrointestinal: Gastrointestinal: Reports abdominal pain and Reports nausea Genitourinary: Genitourinary: Denies hematuria Musculoskeletal: Musculoskeletal: Denies stiffness Integumentary/Breasts: Skin/Breast: Denies dry skin Neurologic: Denies confusion Psychiatric: Psychiatric: Reports anxiety and Reports depression [facility] Past Medical History Medical History (Updated 01/01/23 @ 12:36 by Wayne Millan DO) Hypertension Hypothyroid Surgical History Surgical History (Updated 01/01/23 @ 12:35 by Wayne Millan DO) History of sinus surgery S/P IVC filter Social History Social History Smoking packs per day: 0.5 Smoking cigarettes per day: 10.0 Smoking status: Current every day smoker Tobacco type: cigarettes Alcohol intake: never Substance use: current Substance use type: marijuana Last use: 12/20/2022 Lack of Transportation: No Lack of Food: Never True Current Housing: I Have Housing Concerned About Future Housing: No Difficulty Paying Gas/Electric Bills: YES Difficulty Paying for Meds: No Currently Unemployed: No Education: High School Diploma/GED Difficulty w/ Childcare or Family Care: No Spiritual care concerns: No Meds Home Medications and Allergies Home Medications Medication Instructions Recorded Confirmed Type alprazolam 2 mg tablet 2 mg PO TID 12/27/22 12/27/22 History amlodipine 10 mg tablet 10 mg PO DAILY 12/27/22 12/27/22 History biotin 10,000 mcg chewable tablet 10,000 mcg PO DAILY 12/27/22 12/27/22 History (Hair, Skin and Nails (biotin)) cyclobenzaprine 10 mg tablet 10 mg PO TID 12/27/22 12/27/22 History folic acid 1 mg tablet 1 mg PO DAILY 12/27/22 12/27/22 History guanfacine 1 mg tablet 1 mg PO HS 12/27/22 12/27/22 History hydrochlorothiazide 25 mg tablet 25 mg PO DAILY 12/27/22 12/27/22 History levothyroxine 100 mcg tablet 100 mcg PO DAILY 12/27/22 12/27/22 History losartan 50 mg tablet 50 mg PO DAILY 12/27/22 12/27/22 History ondansetron 4 mg disintegrating 4 mg PO BID PRN Nausea 12/27/22 12/27/22 History tablet prochlorperazine maleate 10 mg 10 mg PO TID
[2023-01-02] MEDS: BISACODYL 5 MG TABLET EC 20 MG PO (17:26)
[2023-01-02] MEDS: polyethylene glycoL 3350 238 GM BOTTLE PO (17:31)
[2023-01-02] MEDS: HYDROcodone/acetaminophen (*CRX) 5-325 MG TABLET 1 TAB PO (19:49)
[2023-01-02] MEDS: guanFACINE HCL 1 MG TABLET PO (19:49)
[2023-01-02] MEDS: ZOLPIDEM TARTRATE (*CRX) 5 MG TABLET PO (19:53)
[2023-01-02 22:29] VITALS: BP 136/86; PULSE 100; RESP 16; TEMP 36.6; O2SAT 97
[2023-01-03] VITALS (8 sets, daily range): BP systolic 122–150; BP diastolic 71–91; PULSE 92–105; RESP 16–22; TEMP 36.7–36.9; O2SAT 92–99
[2023-01-03] MEDS: PIPERACILLN/TAZ 3.375GM/NS50ML 3.375 GM/50 ML BAG IVPB ×4 (05:35→23:58)
[2023-01-03] MEDS: LEVOTHYROXINE SODIUM 100 MCG TABLET PO (05:36)
[2023-01-03] MEDS: HYDROcodone/acetaminophen (*CRX) 5-325 MG TABLET 1 TAB PO ×2 (05:40→14:42)
[2023-01-03 05:47] LABS: Hematocrit 37.7 % (37.0-47.0); Hemoglobin 12.5 g/dL (12.0-15.0); Mean Corpuscular HGB Conc 33.2 g/dl (32-36); Mean Corpuscular Hemoglobin 28.4 pg (26-34); Mean Corpuscular Volume 85.7 fl (80-100); Mean Platelet Volume 8.1 fl (7.4-10.4); Platelet Count Result 601 k/mm3 (150-375); Red Cell Distribution Width 14.1 % (11.5-14.5); White Blood Count 13.9 K/mm3 (4.5-10.0)
[2023-01-03 05:58] LABS: Alanine Aminotransferase 34 U/L (6-35); Albumin Level 3.1 g/dL (3.5-5.1); Alkaline Phosphatase 125 U/L (38-126); Anion Gap 8 mmol/L (8-16); Aspartate Amino Transferase 36 U/L (14-36); Bilirubin,Total 0.5 mg/dL (0.2-1.3); Blood Urea Nitrogen 10 mg/dL (7-17); Calcium 8.1 mg/dL (8.4-10.2); Carbon Dioxide 24 mmol/L (22-30); Chloride 107 mmol/L (98-107); Estimated CRCL calculation 83 ml/min; Estimated Glomerular Filt Rate > 60; Glucose 85 mg/dL (65-110); Potassium 3.9 mmol/L (3.4-5.0); Sodium 139 mmol/L (137-145)
--- NOTE | 2023-01-03 09:49 | WPDANESEPPF ---
Anes - Initial Pre Proc Eval Procedure: Operation Date: 01/03/23 15:00 Proposed Procedures p Flexible Sigmoidoscopy - Bakari Whitman MD Date/Time: 01/03/23 09:49 Surgeon: Swati Ojeda PA-C Pre Op Diagnosis: Abdominal Pain/Colitis/Leukocytosis/Hypokalemia Patient Data Age: 62 Gender: F Height: 1.8 m Weight: 101.1 kg Last Vital Signs Temp 36.7 C 01/03/23 05:31 Pulse 93 01/03/23 05:31 Resp 16 01/03/23 05:31 BP 144/76 H 01/03/23 05:31 Pulse Ox 96 01/03/23 05:31 O2 Del Method Room Air 01/02/23 08:08 Allergies Allergy/AdvReac Type Severity Reaction Status Date / Time sumatriptan Allergy Anaphylaxis Verified 12/26/22 21:45 ergotamine AdvReac Agitated Verified 12/26/22 21:45 NSAIDS (Non-Steroidal AdvReac Abdominal Verified 12/26/22 21:45 Anti-Inflamma Pain prednisone AdvReac Agitated Verified 12/26/22 21:45 rosuvastatin [From Crestor] AdvReac Diarrhea Verified 12/26/22 21:45 Evusvnd-UAU-GeH Reductase AdvReac Diarrhea Verified 12/26/22 21:45 Inhibitor tree nut AdvReac Headache Verified 12/26/22 21:45 Home Medications Medication Instructions Recorded Confirmed Type alprazolam 2 mg tablet 2 mg PO TID 12/27/22 12/27/22 History amlodipine 10 mg tablet 10 mg PO DAILY 12/27/22 12/27/22 History biotin 10,000 mcg chewable tablet 10,000 mcg PO DAILY 12/27/22 12/27/22 History (Hair, Skin and Nails (biotin)) cyclobenzaprine 10 mg tablet 10 mg PO TID 12/27/22 12/27/22 History folic acid 1 mg tablet 1 mg PO DAILY 12/27/22 12/27/22 History guanfacine 1 mg tablet 1 mg PO HS 12/27/22 12/27/22 History hydrochlorothiazide 25 mg tablet 25 mg PO DAILY 12/27/22 12/27/22 History levothyroxine 100 mcg tablet 100 mcg PO DAILY 12/27/22 12/27/22 History losartan 50 mg tablet 50 mg PO DAILY 12/27/22 12/27/22 History ondansetron 4 mg disintegrating 4 mg PO BID PRN Nausea 12/27/22 12/27/22 History tablet prochlorperazine maleate 10 mg 10 mg PO TID 12/27/22 12/27/22 History tablet zolpidem 5 mg tablet 5 mg PO HS 12/27/22 12/27/22 History Laboratory Tests 01/03/23 01/03/23 05:24 05:24 WBC 13.9 K/mm3 H K/mm3 (4.5-10.0) RBC 4.40 M/mm3 M/mm3 (4.2-5.4) Hgb 12.5 g/dL g/dL (12.0-15.0) Hct 37.7 % % (37.0-47.0) MCV 85.7 fl fl (80-100) MCH 28.4 pg pg (26-34) MCHC 33.2 g/dl g/dl (32-36) RDW 14.1 % % (11.5-14.5) Plt Count 601 k/mm3 H k/mm3 (150-375) MPV 8.1 fl fl (7.4-10.4) Sodium 139 mmol/L mmol/L (137-145) Potassium 3.9 mmol/L mmol/L (3.4-5.0) Chloride 107 mmol/L mmol/L (98-107) Carbon Dioxide 24 mmol/L mmol/L (22-30) Anion Gap 8 mmol/L mmol/L (8-16) BUN 10 mg/dL mg/dL (7-17) Creatinine 0.80 mg/dL mg/dL (0.7-1.0) Estim Creat Clear Calc 83 ml/min ml/min Estimated GFR > 60 (59 - ) Glucose 85 mg/dL mg/dL (65-110) Calcium 8.1 mg/dL L mg/dL (8.4-10.2) Total Bilirubin 0.5 mg/dL mg/dL (0.2-1.3) AST 36 U/L U/L (14-36) ALT 34 U/L U/L (6-35) Alkaline Phosphatase 125 U/L U/L (38-126) Total Protein 6.0 g/dL L g/dL (6.3-8.2) Albumin 3.1 g/dL L g/dL (3.5-5.1) Patient hx anesthesia problems: none Family hx anesthesia problems: none Results Review: All pre-operative results and documents have been reviewed as part of the pre-operative evaluation. [facility] Past Medical History Medical History (Updated 01/03/23 @ 09:54 by Nick Espinoza MD) AAA (abdominal aortic aneurysm) 3.7cm CVA (cerebral vascular accident) Hypertension Hypothyroid TIA (transient ischemic attack) Surgical History Surgical History (Updated 01/01/23 @ 12:35 by Wayne Millan DO) History of sinus surgery S/P IVC filter Social History Social History Smoking packs per day: 0.5 Smoking cigarettes p
[2023-01-03] MEDS: LACTATED RINGERS 1,000 ML 150 ML IV CONT (10:13)
[2023-01-03] MEDS: POTASSIUM CHLORIDE 20 MEQ TABLET.ER PO ×2 (11:36→16:55)
[2023-01-03] MEDS: CYCLOBENZAPRINE HCL 10 MG TABLET PO ×2 (11:37→16:55)
[2023-01-03] MEDS: ALPRAZolam (*CRX) 0.5 MG TABLET 2 MG PO ×2 (11:37→20:09)
[2023-01-03] MEDS: amLODIPine BESYLATE 5 MG TABLET 10 MG PO (11:37)
[2023-01-03] MEDS: ENOXAPARIN 40 MG/0.4 ML SYRINGE SUB-Q (11:38)
[2023-01-03] MEDS: LOSARTAN POTASSIUM 50 MG TABLET PO (11:38)
[2023-01-03] MEDS: FOLIC ACID 1 MG TABLET PO (11:38)
--- NOTE | 2023-01-03 15:12 | P.PNIM_ITS ---
Progress Note: A&P Assessment and Plan (1) Acute colitis: Code(s): K52.9 - Noninfective gastroenteritis and colitis, unspecified Status: Acute Assessment and Plan: Patient with abdominal pain, nausea and vomiting * CT showed colitis but no evidence of perforation * Stool cultures pending * Continue supportive care * Continue IV Zosyn * Appreciate general surgery and Gastroenterology consultation * Flexible sigmoidoscopy completed today which showed localized colitis, biopsies are pending (2) Abdominal pain: Code(s): R10.9 - Unspecified abdominal pain Status: Acute Assessment and Plan: patient with persistent abdominal pain, unable to tolerate solids * Obstructive series on 12/31 demonstrated multiple loops of mildly dilated large bowel with large volume of colonic fecal material. CT of the abdomen/pelvis on 01/01 showed colitis involving the descending and sigmoid colon with large volume of stool in the colon, no dilated * Patient having multiple bowel movements * Appreciate gastroenterology and general surgery consultation * Supportive care * Liquid diet. Advance as tolerated (3) Sepsis: Code(s): A41.9 - Sepsis, unspecified organism Status: Resolved Assessment and Plan: Resolved. patient met criteria for sepsis with leukocytosis and tachycardia. Source of infection colitis as above * Continue antibiotics * IV fluids discontinued as patient is tolerating oral intake * Trend WBC, slight increased today * Afebrile (4) Positive blood culture: Code(s): R78.81 - Bacteremia Status: Acute Assessment and Plan: blood cultures with growth of staphylococcus epidermidis in 1 of 2 bottles * felt to be skin contaminant, not felt to be consistent with true infection * no need for further treatment at this time * vancomycin discontinued (5) UTI (urinary tract infection): Code(s): N39.0 - Urinary tract infection, site not specified Status: Acute Assessment and Plan: patient complained of dysuria, UA abnormal * urine culture with growth of Klebsiella pneumoniae * on appropriate antibiotic therapy, now on Zosyn (6) Acute hypokalemia: Code(s): E87.6 - Hypokalemia Status: Acute Assessment and Plan: Likely due to vomiting and decreased PO intake * Potassium stable at this time. 3.9 today * continue scheduled potassium supplementation and monitor BMP (7) KALIE (acute kidney injury): Code(s): N17.9 - Acute kidney failure, unspecified Status: Acute Assessment and Plan: resolved. Cr elevated to 1.5 on admission, likely prerenal azotemia * creatinine has normalized following IV fluid rehydration * Monitor BMP (8) Hypertension: Code(s): I10 - Essential (primary) hypertension Status: Acute Assessment and Plan: BP remaining stable * continue amlodipine and losartan Subjective Date/time seen: 01/03/23 15:12 Interval history: Date of service: 01/01/2023 Davin Cho is a 62-year-old female with history of hypertension, CVA with residual left sided weakness, hyperlipidemia, DVT s/p IVC filter, depression, fibromyalgia, and chronic fatigue syndrome who is seen in follow up for acute colitis.Feeling better today but states that she is still ?off. ? She continues to endorse abdominal pain, however notes some improvement. She was able to tolerate prep for sigmoidoscopy. She denies vomiting but continues to endorse nausea
--- NOTE | 2023-01-03 15:12 | PM.IMPN ---
Progress Note: A&P Assessment and Plan (1) Acute colitis: Code(s): K52.9 - Noninfective gastroenteritis and colitis, unspecified Status: Acute Assessment and Plan: Patient with abdominal pain, nausea and vomiting CT showed colitis but no evidence of perforation Stool cultures pending Continue supportive care Continue IV Zosyn Appreciate general surgery and Gastroenterology consultation Flexible sigmoidoscopy completed today which showed localized colitis, biopsies are pending (2) Abdominal pain: Code(s): R10.9 - Unspecified abdominal pain Status: Acute Assessment and Plan: patient with persistent abdominal pain, unable to tolerate solids Obstructive series on 12/31 demonstrated multiple loops of mildly dilated large bowel with large volume of colonic fecal material. CT of the abdomen/pelvis on 01/01 showed colitis involving the descending and sigmoid colon with large volume of stool in the colon, no dilated Patient having multiple bowel movements Appreciate gastroenterology and general surgery consultation Supportive care Liquid diet. Advance as tolerated (3) Sepsis: Code(s): A41.9 - Sepsis, unspecified organism Status: Resolved Assessment and Plan: Resolved. patient met criteria for sepsis with leukocytosis and tachycardia. Source of infection colitis as above Continue antibiotics IV fluids discontinued as patient is tolerating oral intake Trend WBC, slight increased today Afebrile (4) Positive blood culture: Code(s): R78.81 - Bacteremia Status: Acute Assessment and Plan: blood cultures with growth of staphylococcus epidermidis in 1 of 2 bottles felt to be skin contaminant, not felt to be consistent with true infection no need for further treatment at this time vancomycin discontinued (5) UTI (urinary tract infection): Code(s): N39.0 - Urinary tract infection, site not specified Status: Acute Assessment and Plan: patient complained of dysuria, UA abnormal urine culture with growth of Klebsiella pneumoniae on appropriate antibiotic therapy, now on Zosyn (6) Acute hypokalemia: Code(s): E87.6 - Hypokalemia Status: Acute Assessment and Plan: Likely due to vomiting and decreased PO intake Potassium stable at this time. 3.9 today continue scheduled potassium supplementation and monitor BMP (7) KALIE (acute kidney injury): Code(s): N17.9 - Acute kidney failure, unspecified Status: Acute Assessment and Plan: resolved. Cr elevated to 1.5 on admission, likely prerenal azotemia creatinine has normalized following IV fluid rehydration Monitor BMP (8) Hypertension: Code(s): I10 - Essential (primary) hypertension Status: Acute Assessment and Plan: BP remaining stable continue amlodipine and losartan Subjective Date/time seen: 01/03/23 15:12 Interval history: Date of service: 01/01/2023 Davin Cho is a 62-year-old female with history of hypertension, CVA with residual left sided weakness, hyperlipidemia, DVT s/p IVC filter, depression, fibromyalgia, and chronic fatigue syndrome who is seen in follow up for acute colitis.Feeling better today but states that she is still ?off. ? She continues to endorse abdominal pain, however notes some improvement. She was able to tolerate prep for sigmoidoscopy. She denies vomiting but continues to endorse nausea. No fevers or chills. She states that she is exhausted and cannot get comfortable. Denies shortness of breath or chest pain. Review of Systems Review of Systems: All systems reviewed & are unremarkable except as noted in HPI and below Exam Narrative: General: well-nourished, well-appearing 62-year-old female, sitting up in bed, comfortable Neuro: awake, alert and oriented x4, speech clear, no focal neuro deficits noted HEENMT:normocephalic
[2023-01-03] MEDS: ONDANSETRON INJ 4 MG/2 ML VIAL IV PUSH (16:54)
[2023-01-03] MEDS: ZOLPIDEM TARTRATE (*CRX) 5 MG TABLET PO (20:10)
[2023-01-03] MEDS: DOCUSATE SODIUM 100 MG CAPSULE PO (20:10)
[2023-01-03] MEDS: guanFACINE HCL 1 MG TABLET PO (20:10)
[2023-01-04] MEDS: PIPERACILLN/TAZ 3.375GM/NS50ML 3.375 GM/50 ML BAG IVPB ×3 (05:50→17:25)
[2023-01-04] MEDS: LEVOTHYROXINE SODIUM 100 MCG TABLET PO (05:50)
[2023-01-04 06:49] VITALS: BP 150/77; PULSE 96; RESP 16; TEMP 36.6; O2SAT 100
[2023-01-04 08:40] LABS: Basophils Absolute Auto 0.1 K/mm3 (0.0-0.1); Basophils Percent Auto 0.7 % (0.2-1.2); Eosinophils Absolute Auto 0.2 K/mm3 (0-0.3); Eosinophils Percent Auto 1.6 % (0-4.4); Hematocrit 40.7 % (37.0-47.0); Hemoglobin 13.4 g/dL (12.0-15.0); Immature Granulocyte Absolute 0.52 K/mm3 (0.00-0.031); Immature Granulocyte Percent A 3.7 % (0-0.5); Lymphocytes Absolute Auto 3.33 K/mm3 (0.9-3.2); Lymphocytes Percent Auto 23.8 % (18.3-44.2); Mean Corpuscular HGB Conc 32.9 g/dl (32-36); Mean Corpuscular Hemoglobin 28.2 pg (26-34); Mean Corpuscular Volume 85.5 fl (80-100); Monocytes Absolute Auto 0.8 K/mm3 (0.1-0.6); Monocytes Percent Auto 5.9 % (2.6-8.5); Neutrophils Percent Auto 64.3 % (45.5-73.1); Platelet Count Result 660 k/mm3 (150-375); Red Blood Count 4.76 M/mm3 (4.2-5.4)
[2023-01-04] MEDS: ALPRAZolam (*CRX) 0.5 MG TABLET 2 MG PO (09:08)
[2023-01-04] MEDS: FOLIC ACID 1 MG TABLET PO (09:09)
[2023-01-04] MEDS: ENOXAPARIN 40 MG/0.4 ML SYRINGE SUB-Q (09:09)
[2023-01-04] MEDS: LOSARTAN POTASSIUM 50 MG TABLET PO (09:09)
[2023-01-04] MEDS: POTASSIUM CHLORIDE 20 MEQ TABLET.ER PO ×2 (09:09→17:25)
[2023-01-04] MEDS: DOCUSATE SODIUM 100 MG CAPSULE PO ×2 (09:09→21:01)
[2023-01-04] MEDS: CYCLOBENZAPRINE HCL 10 MG TABLET PO ×3 (09:09→17:25)
[2023-01-04] MEDS: amLODIPine BESYLATE 5 MG TABLET 10 MG PO (09:09)
[2023-01-04] MEDS: ONDANSETRON INJ 4 MG/2 ML VIAL IV PUSH (09:11)
--- NOTE | 2023-01-04 09:33 | WPDANESPN ---
Anes - Prog Note Post-Op Date/Time: 01/04/23 09:33 Cardiovascular status: normal Respiratory status: normal Airway patency: baseline Mental status: baseline Post-Op hydration status: normal Vital Signs: Last Vital Signs Temp 36.6 C 01/04/23 06:49 Pulse 96 01/04/23 06:49 Resp 16 01/04/23 06:49 BP 150/77 H 01/04/23 06:49 Pulse Ox 100 01/04/23 06:49 O2 Del Method Room Air 01/03/23 20:00 Pain Score (VAS): 0/10 I/O: Intake & Output 01/03/23 01/04/23 01/04/23 23:59 07:59 15:59 Intake Total 610 350 60 Balance 610 350 60 Laboratory Tests 01/04/23 08:29 01/03/23 05:24 01/04/23 08:29 WBC 14.0 H RBC 4.76 Hgb 13.4 Hct 40.7 MCV 85.5 MCH 28.2 MCHC 32.9 RDW 14.0 Plt Count 660 H MPV 8.0 Immature Gran % (Auto) 3.7 H Neut % (Auto) 64.3 Lymph % (Auto) 23.8 [place] % (Auto) 5.9 Eos % (Auto) 1.6 Baso % (Auto) 0.7 Lymph # (Auto) 3.33 H [place] # (Auto) 0.8 H Eos # (Auto) 0.2 Baso # (Auto) 0.1 Abs Immat Gran (auto) 0.52 H Absolute Neuts (auto) 9.0 H Absolute Nucleated RBC 0.0 Nucleated RBC % 0.0 Microbiology 12/31/22 22:40 Stool Escherichia coli Shiga Toxins - Final 12/31/22 22:40 Stool Salmonella/Shigella Culture - Final 12/31/22 22:40 Stool Campylobacter Antigen Assay - Final Post-procedural complaints: none Patient Feedback: Patient satisfied with anesthetic care.
[2023-01-04 11:21] VITALS: BMI 31.1
--- NOTE | 2023-01-04 12:54 | WPDGIPROGNO ---
Progress Note: A&P Assessment and Plan (1) Acute colitis: Code(s): K52.9 - Noninfective gastroenteritis and colitis, unspecified Status: Acute Assessment and Plan: Colonoscopy yesterday showed localized colitis. Infectious colitis versus ischemic colitis is suspected. Would recommend a complete course of antibiotics for 7-10 days. This can be completed after discharge. Await final histology from biopsies. Plan to advance diet. Discharge home if tolerating solid food. (2) Generalized abdominal pain: Code(s): R10.84 - Generalized abdominal pain Status: Acute Assessment and Plan: Abdominal pain much improved today. Subjective Date/time seen: 01/04/23 12:54 Interval history: Patient seen today in the absence Dr. Bonilla. Patient is sitting on bed. Tolerating soft diet without difficulty. Still has mild abdominal discomfort. She states cramps have improved dramatically. Currently afebrile. Anxious to go home. Review of Systems Review of Systems: Review of systems noncontributory. Exam Narrative: Physical exam reveals patient to be alert. Vital signs stable. HEENT exam reveals afebrile. She is anicteric. Lungs are clear. Heart without murmur. Abdomen bowel sounds present soft no localized tenderness. Somewhat obese. Objective Data Vital Signs Vital Signs: Vital Signs - 24 hr 01/03/23 14:00 01/03/23 19:33 01/03/23 20:00 Temperature 98.4 F 98.4 F Pulse Rate 95 105 H 105 H Respiratory Rate 16 16 16 Blood Pressure 122/71 139/75 Pulse Oximetry 99 96 96 Oxygen Delivery Room Air 01/04/23 06:49 01/04/23 09:00 Temperature 97.8 F Pulse Rate 96 Respiratory Rate 16 Blood Pressure 150/77 H Pulse Oximetry 100 Oxygen Delivery Room Air Intake/Output Intake/Output: Intake & Output 01/01/23 01/02/23 01/03/23 01/04/23 23:59 23:59 23:59 23:59 Intake Total 1550 2750 1318 820 Output Total 556 2400 Balance 705 190 3744 820 Meds/Results Medications: Active Medications Generic Name Dose Route Start Last Admin Trade Name Freq PRN Reason Stop Dose Admin Acetaminophen 650 mg 12/28/22 16:33 01/02/23 08:05 Acetaminophen 325 Mg Tablet PO 650 mg Q4H PRN Administration Pain 1-3 Hydrocodone Bitart/Acetaminophen 1 tab 12/28/22 16:33 01/03/23 14:42 Hydrocodone/Acetaminophen (*Crx) 5-325 Mg Tablet PO 1 tab Q6H PRN Administration Pain Rated 4-6 Alprazolam 2 mg 12/27/22 16:50 01/04/23 09:08 Alprazolam (*Crx) 0.5 Mg Tablet PO 2 mg TID PRN Administration Anxiety Amlodipine Besylate 10 mg 12/28/22 09:00 01/04/23 09:09 Amlodipine Besylate 5 Mg Tablet PO 10 mg DAILY DANY Administration Bisacodyl 10 mg 12/31/22 17:59 12/31/22 18:17 Bisacodyl 10 Mg Suppository RECTAL 10 mg QAM PRN Administration Constipation Cyclobenzaprine HCl 10 mg 12/27/22 17:00 01/04/23 12:20 Cyclobenzaprine Hcl 10 Mg Tablet PO 10 mg TID DANY Administration Docusate Sodium 100 mg 12/30/22 21:00 01/04/23 09:09 Docusate Sodium 100 Mg Capsule PO 100 mg Q12HR DANY Administration Enoxaparin Sodium 40 mg 12/27/22 09:00 01/04/23 09:09 Enoxaparin 40 Mg/0.4 Ml Syringe SUB-Q 40 mg DAILY DANY Administration Folic Acid 1 mg 12/28/22 09:00 01/04/23 09:09 Folic Acid 1 Mg Tablet PO 1 mg DAILY DANY Administration Guanfacine HCl 1 mg 12/27/22 21:00 01/03/23 20:10 Guanfacine Hcl 1 Mg Tablet PO 1 mg HS DANY Administration Piperacillin/Tazobactam/Dextrose 3.375 gm in 50 mls @ 100 mls/hr 01/01/23 12:35 01/04/23 12:20 Zosyn 3.375 Gm/Ns 50 Ml IVPB 100 mls/hr Q6HR DANY Administration Levothyroxine Sodium 100 mcg 12/28/22 06:30 01/04/23 05:50 Levothyroxine Sodium 100 Mcg Tablet PO 100 mcg DAILY@0630 DANY Administration Losartan Potassium 50 mg 12/28/22 09:00 01/04/23 09:09 Losartan Potassium 50 Mg Tablet PO 50 mg DAILY DANY Administration [place]
--- NOTE | 2023-01-04 13:13 | PC.NURSE ---
On 01/04/23, the student, [Chiqui Laboy], provided care and completed [facility] documentation on this patient. I have reviewed the student's documentation and agree with the findings.
[2023-01-04 14:06] VITALS: BP 135/65; PULSE 90; RESP 18; TEMP 36.9; O2SAT 98
--- NOTE | 2023-01-04 14:14 | PC.NURSE ---
On 01/04/23, the student, [Kristy Doyle], provided care and completed [facility] documentation on this patient. I have reviewed the student's documentation and agree with the findings.
[2023-01-04] MEDS: HYDROcodone/acetaminophen (*CRX) 5-325 MG TABLET 1 TAB PO ×2 (15:27→22:58)
--- NOTE | 2023-01-04 15:32 | P.PNIM_ITS ---
Progress Note: A&P Assessment and Plan (1) Acute colitis: Code(s): K52.9 - Noninfective gastroenteritis and colitis, unspecified Status: Acute Assessment and Plan: Patient with abdominal pain, nausea and vomiting * CT showed colitis but no evidence of perforation * Stool cultures negative * Continue supportive care * Continue IV Zosyn for total of 7-10 day * Appreciate general surgery and Gastroenterology consultation * Flexible sigmoidoscopy completed on 01/03 which showed localized colitis, biopsies are pending (2) Abdominal pain: Code(s): R10.9 - Unspecified abdominal pain Status: Acute Assessment and Plan: patient with persistent abdominal pain, unable to tolerate solids * Obstructive series on 12/31 demonstrated multiple loops of mildly dilated large bowel with large volume of colonic fecal material. CT of the abdomen/pelvis on 01/01 showed colitis involving the descending and sigmoid colon with large volume of stool in the colon, no dilated * patient not having regular bowel movements, pain has improved * advance to regular diet this evening * continue with supportive care (3) Sepsis: Code(s): A41.9 - Sepsis, unspecified organism Status: Resolved Assessment and Plan: Resolved. patient met criteria for sepsis with leukocytosis and tachycardia. Source of infection colitis as above * Continue antibiotics * IV fluids discontinued as patient is tolerating oral intake * Trend WBC, slight increase today * Afebrile (4) Positive blood culture: Code(s): R78.81 - Bacteremia Status: Acute Assessment and Plan: blood cultures with growth of staphylococcus epidermidis in 1 of 2 bottles * felt to be skin contaminant, not felt to be consistent with true infection * no need for further treatment at this time * vancomycin discontinued (5) UTI (urinary tract infection): Code(s): N39.0 - Urinary tract infection, site not specified Status: Acute Assessment and Plan: patient complained of dysuria, UA abnormal * urine culture with growth of Klebsiella pneumoniae * on appropriate antibiotic therapy, now on Zosyn (6) Acute hypokalemia: Code(s): E87.6 - Hypokalemia Status: Acute Assessment and Plan: Likely due to vomiting and decreased PO intake * Potassium has normalized * continue scheduled potassium supplementation and monitor BMP (7) KALIE (acute kidney injury): Code(s): N17.9 - Acute kidney failure, unspecified Status: Acute Assessment and Plan: resolved. Cr elevated to 1.5 on admission, likely prerenal azotemia * creatinine has normalized following IV fluid rehydration * Monitor BMP (8) Hypertension: Code(s): I10 - Essential (primary) hypertension Status: Acute Assessment and Plan: BP remaining stable * continue amlodipine and losartan Subjective Date/time seen: 01/04/23 15:32 Interval history: Date of service: 01/04/2023 Davin Cho is a 62-year-old female with history of hypertension, CVA with residual left sided weakness, hyperlipidemia, DVT s/p IVC filter, depression, fibromyalgia, and chronic fatigue syndrome who is seen in follow up for acute colitis. She is finally starting to feel better today. She was able to get some sleep last night and feels much improved. She is more comfortable. She is tolerating liquids today. She still has not had solids yet but plans to try and see how she tolerates
--- NOTE | 2023-01-04 15:32 | PM.IMPN ---
Progress Note: A&P Assessment and Plan (1) Acute colitis: Code(s): K52.9 - Noninfective gastroenteritis and colitis, unspecified Status: Acute Assessment and Plan: Patient with abdominal pain, nausea and vomiting CT showed colitis but no evidence of perforation Stool cultures negative Continue supportive care Continue IV Zosyn for total of 7-10 day Appreciate general surgery and Gastroenterology consultation Flexible sigmoidoscopy completed on 01/03 which showed localized colitis, biopsies are pending (2) Abdominal pain: Code(s): R10.9 - Unspecified abdominal pain Status: Acute Assessment and Plan: patient with persistent abdominal pain, unable to tolerate solids Obstructive series on 12/31 demonstrated multiple loops of mildly dilated large bowel with large volume of colonic fecal material. CT of the abdomen/pelvis on 01/01 showed colitis involving the descending and sigmoid colon with large volume of stool in the colon, no dilated patient not having regular bowel movements, pain has improved advance to regular diet this evening continue with supportive care (3) Sepsis: Code(s): A41.9 - Sepsis, unspecified organism Status: Resolved Assessment and Plan: Resolved. patient met criteria for sepsis with leukocytosis and tachycardia. Source of infection colitis as above Continue antibiotics IV fluids discontinued as patient is tolerating oral intake Trend WBC, slight increase today Afebrile (4) Positive blood culture: Code(s): R78.81 - Bacteremia Status: Acute Assessment and Plan: blood cultures with growth of staphylococcus epidermidis in 1 of 2 bottles felt to be skin contaminant, not felt to be consistent with true infection no need for further treatment at this time vancomycin discontinued (5) UTI (urinary tract infection): Code(s): N39.0 - Urinary tract infection, site not specified Status: Acute Assessment and Plan: patient complained of dysuria, UA abnormal urine culture with growth of Klebsiella pneumoniae on appropriate antibiotic therapy, now on Zosyn (6) Acute hypokalemia: Code(s): E87.6 - Hypokalemia Status: Acute Assessment and Plan: Likely due to vomiting and decreased PO intake Potassium has normalized continue scheduled potassium supplementation and monitor BMP (7) KALIE (acute kidney injury): Code(s): N17.9 - Acute kidney failure, unspecified Status: Acute Assessment and Plan: resolved. Cr elevated to 1.5 on admission, likely prerenal azotemia creatinine has normalized following IV fluid rehydration Monitor BMP (8) Hypertension: Code(s): I10 - Essential (primary) hypertension Status: Acute Assessment and Plan: BP remaining stable continue amlodipine and losartan Subjective Date/time seen: 01/04/23 15:32 Interval history: Date of service: 01/04/2023 Davin Cho is a 62-year-old female with history of hypertension, CVA with residual left sided weakness, hyperlipidemia, DVT s/p IVC filter, depression, fibromyalgia, and chronic fatigue syndrome who is seen in follow up for acute colitis. She is finally starting to feel better today. She was able to get some sleep last night and feels much improved. She is more comfortable. She is tolerating liquids today. She still has not had solids yet but plans to try and see how she tolerates this. She has been able to get out of bed and move around and feels steady on her feet. Review of Systems Review of Systems: All systems reviewed & are unremarkable except as noted in HPI and below Exam Narrative: General: well-nourished, well-appearing 62-year-old female, sitting up in bed, comfortable Neuro: awake, alert and oriented x4, speech clear, no focal neuro deficits noted HEENMT:normocephalic, atraumatic, EOMI, sclerae anicter
[2023-01-04 20:00] VITALS: PULSE 82; RESP 16; O2SAT 97
[2023-01-04] MEDS: guanFACINE HCL 1 MG TABLET PO (21:01)
[2023-01-04] MEDS: ZOLPIDEM TARTRATE (*CRX) 5 MG TABLET PO (21:01)
[2023-01-04 23:00] VITALS: BP 130/67; PULSE 82; RESP 16; TEMP 36.5; O2SAT 97
[2023-01-05] MEDS: ALPRAZolam (*CRX) 0.5 MG TABLET 2 MG PO ×3 (01:50→17:28)
[2023-01-05] MEDS: PIPERACILLN/TAZ 3.375GM/NS50ML 3.375 GM/50 ML BAG IVPB ×3 (05:59→17:28)
[2023-01-05] MEDS: HYDROcodone/acetaminophen (*CRX) 5-325 MG TABLET 1 TAB PO ×3 (06:00→20:59)
[2023-01-05] MEDS: LEVOTHYROXINE SODIUM 100 MCG TABLET PO (06:00)
[2023-01-05 06:38] VITALS: BP 130/68; PULSE 89; RESP 16; TEMP 36.6; O2SAT 100
[2023-01-05] MEDS: amLODIPine BESYLATE 5 MG TABLET 10 MG PO (08:22)
[2023-01-05] MEDS: POTASSIUM CHLORIDE 20 MEQ TABLET.ER PO ×2 (08:22→17:29)
[2023-01-05] MEDS: FOLIC ACID 1 MG TABLET PO (08:22)
[2023-01-05] MEDS: LOSARTAN POTASSIUM 50 MG TABLET PO (08:22)
[2023-01-05] MEDS: CYCLOBENZAPRINE HCL 10 MG TABLET PO ×3 (08:22→17:29)
[2023-01-05] MEDS: DOCUSATE SODIUM 100 MG CAPSULE PO ×2 (08:22→21:00)
[2023-01-05] MEDS: ENOXAPARIN 40 MG/0.4 ML SYRINGE SUB-Q (08:23)
--- NOTE | 2023-01-05 09:26 | WPDGIPROGNO ---
Progress Note: A&P Assessment and Plan (1) Acute colitis: Code(s): K52.9 - Noninfective gastroenteritis and colitis, unspecified Status: Acute Assessment and Plan: Patient with localized colitis in left colon. Most consistent with ischemic colitis. Because infectious colitis cannot be definitively excluded suggest completing a 7-10 day course of antibiotics. Ischemic colitis should improve with conservative management. Suggest supportive care. Discharge when she no longer requires pain medications. Advance to regular diet as tolerated. Follow-up in office only if abdominal pain persists. Otherwise follow-up with primary care service. (2) CVA (cerebral vascular accident): Code(s): I63.9 - Cerebral infarction, unspecified Status: Acute Subjective Date/time seen: 01/05/23 09:26 Interval history: Patient noticed some ongoing abdominal difficulties yesterday. Required pain medications. She states symptoms are improved but not yet gone. Histology of colon biopsies suggest ischemic colitis. Review of Systems Review of Systems: Review of systems noncontributory. Exam Narrative: Physical exam reveals patient be sitting upright in bed. Comfortable at rest. HEENT exam reveals no icterus. Lungs are clear. Heart without murmur. Abdomen obese bowel sounds are present soft mild tenderness no localized findings. Objective Data Vital Signs Vital Signs: Vital Signs - 24 hr 01/04/23 14:06 01/04/23 23:00 01/04/23 20:00 Temperature 98.5 F 97.7 F Pulse Rate 90 82 82 Respiratory Rate 18 16 16 Blood Pressure 135/65 130/67 Pulse Oximetry 98 97 97 Oxygen Delivery Room Air 01/05/23 06:38 Temperature 97.9 F Pulse Rate 89 Respiratory Rate 16 Blood Pressure 130/68 Pulse Oximetry 100 Oxygen Delivery Intake/Output Intake/Output: Intake & Output 01/02/23 01/03/23 01/04/23 01/05/23 23:59 23:59 23:59 23:59 Intake Total 2750 1318 1431 610 Output Total 2400 Balance 350 1318 1431 610 Meds/Results Medications: Active Medications Generic Name Dose Route Start Last Admin Trade Name Freq PRN Reason Stop Dose Admin Acetaminophen 650 mg 12/28/22 16:33 01/02/23 08:05 Acetaminophen 325 Mg Tablet PO 650 mg Q4H PRN Administration Pain 1-3 Hydrocodone Bitart/Acetaminophen 1 tab 12/28/22 16:33 01/05/23 06:00 Hydrocodone/Acetaminophen (*Crx) 5-325 Mg Tablet PO 1 tab Q6H PRN Administration Pain Rated 4-6 Alprazolam 2 mg 12/27/22 16:50 01/05/23 01:50 Alprazolam (*Crx) 0.5 Mg Tablet PO 2 mg TID PRN Administration Anxiety Amlodipine Besylate 10 mg 12/28/22 09:00 01/05/23 08:22 Amlodipine Besylate 5 Mg Tablet PO 10 mg DAILY DANY Administration Bisacodyl 10 mg 12/31/22 17:59 12/31/22 18:17 Bisacodyl 10 Mg Suppository RECTAL 10 mg QAM PRN Administration Constipation Cyclobenzaprine HCl 10 mg 12/27/22 17:00 01/05/23 08:22 Cyclobenzaprine Hcl 10 Mg Tablet PO 10 mg TID DANY Administration Docusate Sodium 100 mg 12/30/22 21:00 01/05/23 08:22 Docusate Sodium 100 Mg Capsule PO 100 mg Q12HR DANY Administration Enoxaparin Sodium 40 mg 12/27/22 09:00 01/05/23 08:23 Enoxaparin 40 Mg/0.4 Ml Syringe SUB-Q 40 mg DAILY DANY Administration Folic Acid 1 mg 12/28/22 09:00 01/05/23 08:22 Folic Acid 1 Mg Tablet PO 1 mg DAILY DNAY Administration Guanfacine HCl 1 mg 12/27/22 21:00 01/04/23 21:01 Guanfacine Hcl 1 Mg Tablet PO 1 mg HS DANY Administration Piperacillin/Tazobactam/Dextrose 3.375 gm in 50 mls @ 100 mls/hr 01/01/23 12:35 01/05/23 06:29 Zosyn 3.375 Gm/Ns 50 Ml IVPB 0 mls/hr Q6HR DANY Infusion Levothyroxine Sodium 100 mcg 12/28/22 06:30 01/05/23 06:00 Levothyroxine Sodium 100 Mcg Tablet PO 100 mcg DAILY@0630 DANY Administration Losartan Potassium 50 mg 12/28/22 09:00 01/05/23 08:22 Losartan Potassium 50 Mg Tablet PO 50 mg DAILY DANY
--- NOTE | 2023-01-05 11:44 | PCOTNOTE ---
Attempted to see pt for Occupational Therapy treatment. Pt declined to participate in session at this time stating that she needs her Xanax to work before she does anything and is needing a pain pill for her stomach. Pt states that she was recently given Xanax and cannot receive a pain pill until after lunch. Pt was encouraged to complete strengthening, however, continue to declined. Pt states I want to work...just maybe later today. Will continue per POC duration/frequency.
[2023-01-05] MEDS: ONDANSETRON INJ 4 MG/2 ML VIAL IV PUSH ×2 (12:08→17:28)
--- NOTE | 2023-01-05 12:20 | PC.NURSE ---
On 01/05/23, the student, [Chiqui Laboy], provided care and completed [facility] documentation on this patient. I have reviewed the student's documentation and agree with the findings.
--- NOTE | 2023-01-05 12:47 | PC.NURSE ---
On 01/05/23, the student, [Yara Moreno], provided care and completed [facility] documentation on this patient. I have reviewed the student's documentation and agree with the findings.
[2023-01-05 14:00] VITALS: BP 121/80; PULSE 83; RESP 16; TEMP 36.5; O2SAT 99
--- NOTE | 2023-01-05 14:18 | P.PNIM_ITS ---
Progress Note: A&P Assessment and Plan (1) Acute colitis: Code(s): K52.9 - Noninfective gastroenteritis and colitis, unspecified Status: Acute Assessment and Plan: Patient with abdominal pain, nausea and vomiting * CT showed colitis but no evidence of perforation * Stool cultures negative * Continue analgesics and antiemetics as needed. * Continue IV Zosyn Q6 hours (12/27-12/29, 01/01-current) for 7-10 days. Patient still with abd pain today. Continue abx and reevaluate tomorrow. * general surgery consulted and no surgical intervention needed at this time. * Gastroenterology consulted and appreciate recommendations- continue abx 7-10 days recommended. * Flexible sigmoidoscopy completed on 01/03 which showed localized colitis, biopsy suggests pseudomembranous colitis compatible with ischemia (2) Abdominal pain: Qualifiers: Abdominal location: lower abdomen, unspecified Qualified Code(s): R10.30 - Lower abdominal pain, unspecified Code(s): R10.9 - Unspecified abdominal pain Status: Acute Assessment and Plan: patient with persistent abdominal pain * Obstructive series on 12/31 demonstrated multiple loops of mildly dilated large bowel with large volume of colonic fecal material. CT of the abdomen/pelvis on 01/01 showed colitis involving the descending and sigmoid colon with large volume of stool in the colon, no dilated * patient with multiple daily BM. * Advanced to regular diet and monitor tolerance. * continue with supportive care as above. (3) Sepsis: Qualifiers: Sepsis type: sepsis due to unspecified organism Sepsis acute organ dysfunction status: without acute organ dysfunction Qualified Code(s): A41.9 - Sepsis, unspecified organism Code(s): A41.9 - Sepsis, unspecified organism Status: Resolved Assessment and Plan: Resolved. patient met criteria for sepsis with leukocytosis and tachycardia. Source of infection colitis as above * Continue antibiotics * IV fluids discontinued as patient is tolerating oral intake * Trend WBC, slight increase today 01/05 * Afebrile (4) Positive blood culture: Code(s): R78.81 - Bacteremia Status: Resolved Assessment and Plan: blood cultures with growth of staphylococcus epidermidis in 1 of 2 bottles * felt to be skin contaminant, not felt to be consistent with true infection * no need for further treatment at this time * vancomycin discontinued * Afebrile (5) UTI (urinary tract infection): Qualifiers: Urinary tract infection type: site unspecified Hematuria presence: without hematuria Qualified Code(s): N39.0 - Urinary tract infection, site not specified Code(s): N39.0 - Urinary tract infection, site not specified Status: Resolved Assessment and Plan: patient complained of dysuria, UA abnormal * 12/27 urine culture with growth of Klebsiella pneumoniae sensitive to ampicillin/clavulanate and piperacillin/tazobactam * patient completed more than 10 days antibiotics to cover UTI (6) Acute hypokalemia: Code(s): E87.6 - Hypokalemia Status: Resolved Assessment and Plan: Likely due to vomiting and decreased PO intake * Potassium has normalized * continue scheduled potassium supplementation and monitor BMP (7) KALIE (acute kidney injury): Code(s): N17.9 - Acute kidney failure, unspecified Status: Resolved Assessment and Plan: resolved. Cr elevated to 1.5 on admission, likely prerenal azotemia * creatinine has normalized following IV fluid rehydration
--- NOTE | 2023-01-05 14:18 | PM.IMPN ---
Progress Note: A&P Assessment and Plan (1) Acute colitis: Code(s): K52.9 - Noninfective gastroenteritis and colitis, unspecified Status: Acute Assessment and Plan: Patient with abdominal pain, nausea and vomiting CT showed colitis but no evidence of perforation Stool cultures negative Continue analgesics and antiemetics as needed. Continue IV Zosyn Q6 hours (12/27-12/29, 01/01-current) for 7-10 days. Patient still with abd pain today. Continue abx and reevaluate tomorrow. general surgery consulted and no surgical intervention needed at this time. Gastroenterology consulted and appreciate recommendations- continue abx 7-10 days recommended. Flexible sigmoidoscopy completed on 01/03 which showed localized colitis, biopsy suggests pseudomembranous colitis compatible with ischemia (2) Abdominal pain: Qualifiers: Abdominal location: lower abdomen, unspecified Qualified Code(s): R10.30 - Lower abdominal pain, unspecified Code(s): R10.9 - Unspecified abdominal pain Status: Acute Assessment and Plan: patient with persistent abdominal pain Obstructive series on 12/31 demonstrated multiple loops of mildly dilated large bowel with large volume of colonic fecal material. CT of the abdomen/pelvis on 01/01 showed colitis involving the descending and sigmoid colon with large volume of stool in the colon, no dilated patient with multiple daily BM. Advanced to regular diet and monitor tolerance. continue with supportive care as above. (3) Sepsis: Qualifiers: Sepsis type: sepsis due to unspecified organism Sepsis acute organ dysfunction status: without acute organ dysfunction Qualified Code(s): A41.9 - Sepsis, unspecified organism Code(s): A41.9 - Sepsis, unspecified organism Status: Resolved Assessment and Plan: Resolved. patient met criteria for sepsis with leukocytosis and tachycardia. Source of infection colitis as above Continue antibiotics IV fluids discontinued as patient is tolerating oral intake Trend WBC, slight increase today 01/05 Afebrile (4) Positive blood culture: Code(s): R78.81 - Bacteremia Status: Resolved Assessment and Plan: blood cultures with growth of staphylococcus epidermidis in 1 of 2 bottles felt to be skin contaminant, not felt to be consistent with true infection no need for further treatment at this time vancomycin discontinued Afebrile (5) UTI (urinary tract infection): Qualifiers: Urinary tract infection type: site unspecified Hematuria presence: without hematuria Qualified Code(s): N39.0 - Urinary tract infection, site not specified Code(s): N39.0 - Urinary tract infection, site not specified Status: Resolved Assessment and Plan: patient complained of dysuria, UA abnormal 12/27 urine culture with growth of Klebsiella pneumoniae sensitive to ampicillin/clavulanate and piperacillin/tazobactam patient completed more than 10 days antibiotics to cover UTI (6) Acute hypokalemia: Code(s): E87.6 - Hypokalemia Status: Resolved Assessment and Plan: Likely due to vomiting and decreased PO intake Potassium has normalized continue scheduled potassium supplementation and monitor BMP (7) KALIE (acute kidney injury): Code(s): N17.9 - Acute kidney failure, unspecified Status: Resolved Assessment and Plan: resolved. Cr elevated to 1.5 on admission, likely prerenal azotemia creatinine has normalized following IV fluid rehydration Monitor BMP off IV fluids (8) Hypertension: Code(s): I10 - Essential (primary) hypertension Status: Acute Assessment and Plan: BP remaining stable continue amlodipine and losartan HCTZ on hold on admission due to hypokalemia and KALIE. Resume at lowered dose [id number]. Plan CODE STATUS: FULL CODE Disposition: from home. Patient has DORS M-F 4-5 hours per day.
[2023-01-05 20:00] VITALS: PULSE 83; RESP 16; O2SAT 99
[2023-01-05] MEDS: guanFACINE HCL 1 MG TABLET PO (20:59)
[2023-01-05] MEDS: ZOLPIDEM TARTRATE (*CRX) 5 MG TABLET PO (20:59)
[2023-01-05 22:16] VITALS: BP 130/71; PULSE 87; RESP 20; TEMP 36.4; O2SAT 98
[2023-01-06] MEDS: PIPERACILLN/TAZ 3.375GM/NS50ML 3.375 GM/50 ML BAG IVPB ×2 (00:58→06:30)
[2023-01-06 05:52] VITALS: BP 134/83; PULSE 70; RESP 21; TEMP 36.6; O2SAT 100
[2023-01-06 06:00] VITALS: BP 134/83; PULSE 70; RESP 21; TEMP 36.6; O2SAT 100
[2023-01-06 06:10] LABS: Basophils Absolute Auto 0.1 K/mm3 (0.0-0.1); Eosinophils Absolute Auto 0.3 K/mm3 (0-0.3); Eosinophils Percent Auto 2.6 % (0-4.4); Hematocrit 41.8 % (37.0-47.0); Hemoglobin 13.6 g/dL (12.0-15.0); Immature Granulocyte Absolute 0.21 K/mm3 (0.00-0.031); Lymphocytes Absolute Auto 3.21 K/mm3 (0.9-3.2); Lymphocytes Percent Auto 30.5 % (18.3-44.2); Mean Corpuscular HGB Conc 32.5 g/dl (32-36); Mean Corpuscular Hemoglobin 28.2 pg (26-34); Mean Corpuscular Volume 86.7 fl (80-100); Mean Platelet Volume 8.1 fl (7.4-10.4); Monocytes Absolute Auto 0.6 K/mm3 (0.1-0.6); Monocytes Percent Auto 5.4 % (2.6-8.5); Neutrophils Absolute Auto 6.2 K/mm3 (1.3-6.7); Neutrophils Percent Auto 58.5 % (45.5-73.1); Platelet Count Result 663 k/mm3 (150-375); Red Blood Count 4.82 M/mm3 (4.2-5.4); White Blood Count 10.5 K/mm3 (4.5-10.0)
[2023-01-06 06:11] LABS: Alanine Aminotransferase 24 U/L (6-35); Albumin Level 3.5 g/dL (3.5-5.1); Alkaline Phosphatase 122 U/L (38-126); Anion Gap 6 mmol/L (8-16); Aspartate Amino Transferase 27 U/L (14-36); Bilirubin,Total 0.5 mg/dL (0.2-1.3); Blood Urea Nitrogen 8 mg/dL (7-17); Calcium 8.7 mg/dL (8.4-10.2); Carbon Dioxide 26 mmol/L (22-30); Chloride 106 mmol/L (98-107); Estimated CRCL calculation 74 ml/min; Estimated Glomerular Filt Rate > 60; Glucose 89 mg/dL (65-110); Sodium 138 mmol/L (137-145)
[2023-01-06] MEDS: LEVOTHYROXINE SODIUM 100 MCG TABLET PO (06:29)
[2023-01-06] MEDS: ONDANSETRON INJ 4 MG/2 ML VIAL IV PUSH (06:29)
[2023-01-06] MEDS: HYDROcodone/acetaminophen (*CRX) 5-325 MG TABLET 1 TAB PO (06:30)
--- NOTE | 2023-01-06 08:13 | WPDGIPROGNO ---
Progress Note: A&P Assessment and Plan (1) Acute colitis: Code(s): K52.9 - Noninfective gastroenteritis and colitis, unspecified Status: Acute Assessment and Plan: Patient with ischemic colitis. This is improving clinically. Sometimes it can take a little while for diarrhea to resolve. Anticipate 1 week of antibiotics after discharge. Just to ensure any infectious etiology is covered. Hopefully she can be discharged today. No additional GI recommendations at this point. (2) CVA (cerebral vascular accident): Code(s): I63.9 - Cerebral infarction, unspecified Status: Acute Subjective Date/time seen: 01/06/23 08:13 Interval history: Patient alert much more comfortable today. She did get a pain shot last night. But reports no pain at present. Bowel habits are normal no bleeding. Review of Systems Review of Systems: Review of systems noncontributory. Exam Narrative: Physical exam reveals patient be alert comfortable at rest. Receiving therapy for her balance. She is afebrile and anicteric. Abdomen bowel sounds present soft nontender. Objective Data Vital Signs Vital Signs: Vital Signs - 24 hr 01/05/23 14:00 01/05/23 20:00 01/05/23 22:16 Temperature 97.7 F 97.5 F L Pulse Rate 83 83 87 Respiratory Rate 16 16 20 Blood Pressure 121/80 130/71 Pulse Oximetry 99 99 98 Oxygen Delivery Room Air 01/06/23 05:52 01/06/23 06:00 Temperature 97.9 F 97.9 F Pulse Rate 70 70 Respiratory Rate 21 H 21 H Blood Pressure 134/83 134/83 Pulse Oximetry 100 100 Oxygen Delivery Intake/Output Intake/Output: Intake & Output 01/03/23 01/04/23 01/05/23 01/06/23 23:59 23:59 23:59 23:59 Intake Total 1318 1431 1710 550 Output Total 1450 Balance 1318 1431 1710 -900 Meds/Results Medications: Active Medications Generic Name Dose Route Start Last Admin Trade Name Freq PRN Reason Stop Dose Admin Acetaminophen 650 mg 12/28/22 16:33 01/02/23 08:05 Acetaminophen 325 Mg Tablet PO 650 mg Q4H PRN Administration Pain 1-3 Hydrocodone Bitart/Acetaminophen 1 tab 12/28/22 16:33 01/06/23 06:30 Hydrocodone/Acetaminophen (*Crx) 5-325 Mg Tablet PO 1 tab Q6H PRN Administration Pain Rated 4-6 Alprazolam 2 mg 12/27/22 16:50 01/05/23 17:28 Alprazolam (*Crx) 0.5 Mg Tablet PO 2 mg TID PRN Administration Anxiety Amlodipine Besylate 10 mg 12/28/22 09:00 01/05/23 08:22 Amlodipine Besylate 5 Mg Tablet PO 10 mg DAILY DANY Administration Bisacodyl 10 mg 12/31/22 17:59 12/31/22 18:17 Bisacodyl 10 Mg Suppository RECTAL 10 mg QAM PRN Administration Constipation Cyclobenzaprine HCl 10 mg 12/27/22 17:00 01/05/23 17:29 Cyclobenzaprine Hcl 10 Mg Tablet PO 10 mg TID DANY Administration Docusate Sodium 100 mg 12/30/22 21:00 01/05/23 21:00 Docusate Sodium 100 Mg Capsule PO 100 mg Q12HR DANY Administration Enoxaparin Sodium 40 mg 12/27/22 09:00 01/05/23 08:23 Enoxaparin 40 Mg/0.4 Ml Syringe SUB-Q 40 mg DAILY DANY Administration Folic Acid 1 mg 12/28/22 09:00 01/05/23 08:22 Folic Acid 1 Mg Tablet PO 1 mg DAILY DANY Administration Guanfacine HCl 1 mg 12/27/22 21:00 01/05/23 20:59 Guanfacine Hcl 1 Mg Tablet PO 1 mg HS DANY Administration Hydrochlorothiazide 12.5 mg 01/06/23 09:00 Hydrochlorothiazide 12.5 Mg Capsule PO QAM DANY Piperacillin/Tazobactam/Dextrose 3.375 gm in 50 mls @ 100 mls/hr 01/01/23 12:35 01/06/23 06:30 Zosyn 3.375 Gm/Ns 50 Ml IVPB 100 mls/hr Q6HR DANY Administration Levothyroxine Sodium 100 mcg 12/28/22 06:30 01/06/23 06:29 Levothyroxine Sodium 100 Mcg Tablet PO 100 mcg DAILY@0630 DANY Administration Losartan Potassium 50 mg 12/28/22 09:00 01/05/23 08:22 Losartan Potassium 50 Mg Tablet PO 50 mg DAILY DANY Administration Morphine Sulfate 4 mg 01/01/23 12:32 01/02/23 22:28 Morphine Sulfate (*Crx) 4 Mg/Ml Inj IV PUSH 4
[2023-01-06] MEDS: POTASSIUM CHLORIDE 20 MEQ TABLET.ER PO (08:20)
[2023-01-06] MEDS: hydroCHLOROthiazide 12.5 MG CAPSULE PO (08:20)
[2023-01-06] MEDS: DOCUSATE SODIUM 100 MG CAPSULE PO (08:20)
[2023-01-06] MEDS: amLODIPine BESYLATE 5 MG TABLET 10 MG PO (08:21)
[2023-01-06] MEDS: FOLIC ACID 1 MG TABLET PO (08:21)
[2023-01-06] MEDS: ENOXAPARIN 40 MG/0.4 ML SYRINGE SUB-Q (08:21)
[2023-01-06] MEDS: LOSARTAN POTASSIUM 50 MG TABLET PO (08:21)
[2023-01-06] MEDS: CYCLOBENZAPRINE HCL 10 MG TABLET PO ×2 (08:21→13:31)
[2023-01-06] MEDS: AMOXICILLIN/CLAVULANATE K 875-125 MG TAB 1 TABLET PO (09:14)
[2023-01-06] MEDS: SACCHAROMYCES BOULARDII 250 MG CAPSULE PO (09:14)
[2023-01-06] MEDS: ONDANSETRON HCL ODT 4 MG TABLET PO (11:11)
[2023-01-06] MEDS: ALPRAZolam (*CRX) 0.5 MG TABLET 2 MG PO (11:11)
--- NOTE | 2023-01-06 12:55 | P.DS_ITS ---
DS: Admitting Diagnosis Discharge Date 01/06/2023 Admitting Diagnosis Noninfective gastroenteritis and colitis, unspecified Leukocytosis Acute hypokalemia? Acute kidney failure, unspecified Hypertension DS: Discharge Diagnosis Discharge Diagnosis (1) Sepsis: Qualifiers: Sepsis acute organ dysfunction status: without acute organ dysfunction Sepsis type: sepsis due to unspecified organism Qualified Code(s): A41.9 - Sepsis, unspecified organism Code(s): A41.9 - Sepsis, unspecified organism Status: Resolved Assessment and Plan: Resolved. patient met criteria for sepsis with leukocytosis and tachycardia. Source of infection colitis as above * Continue antibiotics * IV fluids discontinued as patient is tolerating oral intake * Trend WBC, slight increase today 01/05 * Afebrile (2) Acute colitis: Code(s): K52.9 - Noninfective gastroenteritis and colitis, unspecified Status: Acute Assessment and Plan: Patient with abdominal pain, nausea and vomiting * CT showed colitis but no evidence of perforation * Stool cultures negative * Continue analgesics and antiemetics as needed. * Continue IV Zosyn Q6 hours (12/27-12/29, 01/01-current) for 7-10 days. * general surgery consulted and no surgical intervention needed at this time. * Gastroenterology consulted and appreciate recommendations- continue abx 7 days after discharge recommended. * 01/06/23 Transitioned to Augmentin 875/125 mg PO BID x 7 days. . * Flexible sigmoidoscopy completed on 01/03 which showed localized colitis, biopsy suggests pseudomembranous colitis compatible with ischemia (3) Abdominal pain: Qualifiers: Abdominal location: lower abdomen, unspecified Qualified Code(s): R10.30 - Lower abdominal pain, unspecified Code(s): R10.9 - Unspecified abdominal pain Status: Resolved Assessment and Plan: patient with persistent abdominal pain * Obstructive series on 12/31 demonstrated multiple loops of mildly dilated large bowel with large volume of colonic fecal material. CT of the abdomen/pelvis on 01/01 showed colitis involving the descending and sigmoid colon with large volume of stool in the colon, no dilated * patient with multiple daily BM. * Advanced to regular diet and monitor tolerance. * continue with supportive care as above. (4) Positive blood culture: Code(s): R78.81 - Bacteremia Status: Ruled-out Assessment and Plan: blood cultures with growth of staphylococcus epidermidis in 1 of 2 bottles * felt to be skin contaminant, not felt to be consistent with true infection * no need for further treatment at this time * vancomycin discontinued * Afebrile (5) UTI (urinary tract infection): Qualifiers: Hematuria presence: without hematuria Urinary tract infection type: s ite unspecified Qualified Code(s): N39.0 - Urinary tract infection, site not specified Code(s): N39.0 - Urinary tract infection, site not specified Status: Resolved Assessment and Plan: patient complained of dysuria, UA abnormal * 12/27 urine culture with growth of Klebsiella pneumoniae sensitive to ampicillin/clavulanate and piperacillin/tazobactam * patient completed more than 10 days antibiotics to cover UTI (6) Acute hypokalemia: Code(s): E87.6 - Hypokalemia Status: Resolved Assessment and Plan: Likely due to vomiting and decreased PO intake, K2.8 on admission * Potassium has normalized with resolution of vomiting and supplementation. * continue scheduled potassiu
--- NOTE | 2023-01-06 12:55 | PM.DS ---
DS: Admitting Diagnosis Discharge Date 01/06/2023 Admitting Diagnosis Noninfective gastroenteritis and colitis, unspecified Leukocytosis Acute hypokalemia? Acute kidney failure, unspecified Hypertension DS: Discharge Diagnosis Discharge Diagnosis (1) Sepsis: Qualifiers: Sepsis acute organ dysfunction status: without acute organ dysfunction Sepsis type: sepsis due to unspecified organism Qualified Code(s): A41.9 - Sepsis, unspecified organism Code(s): A41.9 - Sepsis, unspecified organism Status: Resolved Assessment and Plan: Resolved. patient met criteria for sepsis with leukocytosis and tachycardia. Source of infection colitis as above Continue antibiotics IV fluids discontinued as patient is tolerating oral intake Trend WBC, slight increase today 01/05 Afebrile (2) Acute colitis: Code(s): K52.9 - Noninfective gastroenteritis and colitis, unspecified Status: Acute Assessment and Plan: Patient with abdominal pain, nausea and vomiting CT showed colitis but no evidence of perforation Stool cultures negative Continue analgesics and antiemetics as needed. Continue IV Zosyn Q6 hours (12/27-12/29, 01/01-current) for 7-10 days. general surgery consulted and no surgical intervention needed at this time. Gastroenterology consulted and appreciate recommendations- continue abx 7 days after discharge recommended. 01/06/23 Transitioned to Augmentin 875/125 mg PO BID x 7 days. . Flexible sigmoidoscopy completed on 01/03 which showed localized colitis, biopsy suggests pseudomembranous colitis compatible with ischemia (3) Abdominal pain: Qualifiers: Abdominal location: lower abdomen, unspecified Qualified Code(s): R10.30 - Lower abdominal pain, unspecified Code(s): R10.9 - Unspecified abdominal pain Status: Resolved Assessment and Plan: patient with persistent abdominal pain Obstructive series on 12/31 demonstrated multiple loops of mildly dilated large bowel with large volume of colonic fecal material. CT of the abdomen/pelvis on 01/01 showed colitis involving the descending and sigmoid colon with large volume of stool in the colon, no dilated patient with multiple daily BM. Advanced to regular diet and monitor tolerance. continue with supportive care as above. (4) Positive blood culture: Code(s): R78.81 - Bacteremia Status: Ruled-out Assessment and Plan: blood cultures with growth of staphylococcus epidermidis in 1 of 2 bottles felt to be skin contaminant, not felt to be consistent with true infection no need for further treatment at this time vancomycin discontinued Afebrile (5) UTI (urinary tract infection): Qualifiers: Hematuria presence: without hematuria Urinary tract infection type: site unspecified Qualified Code(s): N39.0 - Urinary tract infection, site not specified Code(s): N39.0 - Urinary tract infection, site not specified Status: Resolved Assessment and Plan: patient complained of dysuria, UA abnormal 12/27 urine culture with growth of Klebsiella pneumoniae sensitive to ampicillin/clavulanate and piperacillin/tazobactam patient completed more than 10 days antibiotics to cover UTI (6) Acute hypokalemia: Code(s): E87.6 - Hypokalemia Status: Resolved Assessment and Plan: Likely due to vomiting and decreased PO intake, K2.8 on admission Potassium has normalized with resolution of vomiting and supplementation. continue scheduled potassium supplementation and monitor BMP HCTZ resumed at discharge. KCl supplement continued at discharge. (7) KALIE (acute kidney injury): Code(s): N17.9 - Acute kidney failure, unspecified Status: Resolved Assessment and Plan: resolved. Cr elevated to 1.5 on admission, likely prerenal azotemia creatinine has normalized following IV fluid rehydration stable at discharge (8) Hypertens
[2023-01-06 13:32] VITALS: BP 135/90; PULSE 108; RESP 20; TEMP 36.6; O2SAT 99
== END 2023-01-06 15:25 | disposition home or self-care (01) | DRG 371 ==
LOC: ANHED 12-27 00:19 → ANH2MED 12-27 03:58
PROVIDERS: Emergency Medicine; Internal Medicine Gastroenterology; Physician Assistant; Admitting Provider Internal Medicine; Emergency Provider Emergency Medicine; PCP Physician Assistant; Visit Provider Nurse Practitioner Family
PROC: 0DJD8ZZ Inspection of Lower Intestinal Tract, Via Natural or Artificial Opening Endoscopic (ICD-10-PCS; CPT 45330; principal; 2023-01-03 15:00)
DX: A04.72 Enterocolitis due to Clostridium difficile, not specified as recurrent (principal); A41.9 Sepsis, unspecified organism; I69.354 Hemiplegia and hemiparesis following cerebral infarction affecting left non-dominant side; N17.9 Acute kidney failure, unspecified; N39.0 Urinary tract infection, site not specified; K55.9 Vascular disorder of intestine, unspecified; K58.1 Irritable bowel syndrome with constipation; B96.1 Klebsiella pneumoniae [K. pneumoniae] as the cause of diseases classified elsewhere; E78.5 Hyperlipidemia, unspecified; E03.9 Hypothyroidism, unspecified; E87.6 Hypokalemia; F32.A Depression, unspecified; F17.210 Nicotine dependence, cigarettes, uncomplicated; G93.32 Myalgic encephalomyelitis/chronic fatigue syndrome; H53.9 Unspecified visual disturbance; I10 Essential (primary) hypertension; I69.398 Other sequelae of cerebral infarction; M79.7 Fibromyalgia; Z86.718 Personal history of other venous thrombosis and embolism; Z95.828 Presence of other vascular implants and grafts
CPT/HCPCS: 36415; 74019; 74176; 74177; 80048; 80053; 81001; 83605; 83690; 83735; 85025; 85027; 87040; 87045; 87077; 87086; 87088; 87147; 87181; 87186; 87269; 87272; 87427; 88305; 96361; 96365; 96366; 96367; 96372; 96375; 96376; 97110; 97161; 97165; 97530; 97535; 99285; A9270; G0378; J1650; J2001; J2270; J2405; J2543; J2704; J3370; J3480; J7030; J7040; J7120; Q9967

== ENCOUNTER 2023-01-18 15:13 | Emergency (ER) | payer MEDICARE, MEDICAID, SELFPAY ==
[2023-01-18 15:38] VITALS: BP 130/89; PULSE 105; RESP 16; TEMP 36.3; O2SAT 97
[2023-01-18 17:45] VITALS: BP 113/72; PULSE 69; RESP 20; TEMP 37.1; O2SAT 98
--- NOTE | 2023-01-18 20:27 | PC.NURSE ---
family member came to intake desk and became verbally aggressive with this RN stating that nothing was done for patient and that they were leaving to go to a real hospital
== END 2023-01-18 20:27 | disposition left against medical advice (07) ==
PROVIDERS: PCP Physician Assistant
DX: K52.9 Noninfective gastroenteritis and colitis, unspecified (principal)
CPT/HCPCS: 99199